=== PATIENT | male | born 1960 | race African-American/Black ===

== ENCOUNTER 2019-03-14 00:57 | Inpatient (IN) | payer OTHER ==
[2019-03-14] MEDS ORDERED: MIDAZOLAM HCL 2 MG/2 ML SINGLE DOSE VIAL IVPUSH ONE (01:15)
--- NOTE | 2019-03-14 01:15 | PDOC ---
History of Present Illness - General Chief Complaint: Seizure Stated Complaint: DIABETIC Time Seen by Provider: 03/14/19 01:14 - History of Present Illness Initial Comments: 03/14/19 01:45 The patient is a 59 year old male with a PMH of NIDDM, HTN, HLD who was BIBEMS for witnessed seizure. Patient's fiance @ bedside provides history as patient has laryngitis following a seizure like episode last Monday. States patient was in bedroom getting ready for bed when she heard a thump on the ground coming from patient's bedroom. Patient's fiance found patient on the bed shaking, with his eyes rolled back in his head. Episode lasted 6-7 minutes. H/ o similar episode last Monday for which patient was evaluated at urgent care. No reported h/o trauma, recent medication changes, illegal drug use, alcohol use /cessation. Patient does not recall either episode. NKDA PMD: Dr. Ambika Daniel M.D. Past History - Past Medical History Allergies/Adverse Reactions: Allergies Allergy/AdvReac Type Severity Reaction Status Date / Time No Known Allergies Allergy Verified 03/14/19 02:02 Home Medications: Ambulatory Orders Amlodipine Besylate [Norvasc -] 5 mg PO DAILY 03/14/19 Aspirin [ASA -] 81 mg PO DAILY 03/14/19 Atorvastatin Ca [Lipitor] 20 mg PO HS 03/14/19 Glipizide 10 mg PO DAILY 03/14/19 Lisinopril 5 mg PO DAILY 03/14/19 Metformin HCl [Glucophage] 1,000 mg PO BID 03/14/19 Diabetes: Yes - Suicide/Smoking/Psychosocial Hx Smoking Status: No Smoking History: Unknown if ever smoked Number of Cigarettes Smoked Daily: 0 Hx Alcohol Use: No Substance Use Type: None Review of Systems - Review of Systems Constitutional: No: Chills, Fever HEENTM: No: Blurred Vision, Recent change in vision Respiratory: No: Shortness of Breath, Wheezing Cardiac (ROS): No: Chest Pain, Lightheadedness, Palpitations, Syncope ABD/GI: No: Constipated, Diarrhea : No: Burning, Dysuria Neurological: Yes: Seizure *Physical Exam - Vital Signs Last Vital Signs Temp Pulse Resp BP Pulse Ox 98.8 F 111 H 18 175/110 H 98 03/14/19 01:09 03/14/19 01:09 03/14/19 01:09 03/14/19 01:09 03/14/19 01:09 - Physical Exam Comments: 03/14/19 04:56 GENERAL: Reduced phonation HEENT: NC/AT, PERRLA, EOMI, MMM NECK: Normal range of motion, supple without lymphadenopathy, JVD, or masses. LUNGS: Breath sounds equal, clear to auscultation bilaterally. No wheezes, and no crackles. No accessory muscle use. HEART: tachycardic no m/r/g ABDOMEN: Soft, nontender, not distended, normoactive bowel sounds, no guarding, no rebound, no masses. No hepatomegaly or splenomegaly. MUSCULOSKELETAL: Normal range of motion at all joints. No bony deformities or tenderness. No CVA tenderness. UPPER EXTREMITIES: 2+ pulses, warm, well-perfused. No cyanosis. No clubbing. No peripheral edema. LOWER EXTREMITIES: 2+ pulses, warm, well-perfused. No calf tenderness. No peripheral edema. NEUROLOGICAL: non-focal PSYCHIATRIC: Cooperative. Good eye contact. Appropriate mood and affect. SKIN: Warm, dry, normal turgor, no rashes or lesions noted, normal capillary refill. Heart Score/ECG Review - ECG Impressions Comment:: 03/14/19 02:09 NSR HR 105, no COSTA/STD/TWI ED Treatment Course - LABORATORY CBC & Chemistry Diagram: 03/14/19 01:33 03/14/19 01:33 Medical Decision Making - Medical Decision Making 03/14/19 01:52 59 year old male with witnessed seizure. Hypertensive (175/110), Tachycardic ( HR 110) @ presentation Seizure while in ED. Will give Ativan and obtain CT head. Likely dispostion is admission for new onset seizure disorder. Labs, UTox, Lactic Acid, Prolactin pending. CXR to r/o aspiration. Also consider, but less likely r/o ACS - Troponin, EKG pending. 03/14/19 02:09 EKG non-ischemic as documented in EKG section of EMR 03/14/19 02:11 Patient reassessed @ bedside, remains mildly tachycardic (HR 104). IV hydration. Labs pending. 03/14/19 02:42 BS 581 Lactic Acid 3.7 2L IV NS and repeat blood sugar then consider insulin Cr 2.1 (previous Cr 1.5 in 2015) Troponin (-) Family @ bedside counseled on plan of care Hospitalist microblogged for admission 03/14/19 03:54 Case d/w Dr. Cardona, patient admitted to OBS Tele; neurology consult in the a.m. Clinical Impression: New onset seizure, KIM 03/14/19 04:45 Call received from Imaging inventory control specialist - L cerebellum, hypodensity, mass effect on 4th ventricle, ? mass, ? edema Will make hospitalist aware, patient likely requires MRI 03/14/19 04:52 Hospitalist microblogged No infiltrate on my read of CXR 03/14/19 04:54 Case d/w Dr. Cardona (in ED) and Dr. Johnson (phone) 03/14/19 04:58 Repeat BS 267 *DC/Admit/Observation/Transfer Diagnosis at time of Disposition: New onset seizure - Discharge Dispostion Condition at time of disposition: Fair Decision to Admit order: Yes - Referrals - Patient Instructions - Post Discharge Activity
--- NOTE | 2019-03-14 01:35 | PDOC ---
Attending Attestation - Resident Resident Name: Lora Santos - ED Attending Attestation I have performed the following: I have examined & evaluated the patient, The case was reviewed & discussed with the resident, I agree w/resident's findings & plan - HPI HPI: 03/14/19 01:33 59-year-old male with witnessed seizure activity 2, most recently in the emergency department. According to his significant other who is at the bedside the first episode was on Monday which involves generalized shaking and "convulsions", patient's significant other also states that he did have some vomiting associated with this episode and since has had some sore throat and hoarse voice. Patient denies complaints at this time and does not recall the episodes when they happen. He denies recent change in medications, he has no history of benzodiazepine or alcohol use. - Physicial Exam PE: 03/14/19 01:34 Agree with resident's exam - Medical Decision Making 03/14/19 01:34 59-year-old male with witnessed seizure activity Due to multiple seizures and risk of aspiration patient will be admitted to medical service for further workup CT scan and labs pending Ativan 1 mg IV given
[2019-03-14] MEDS ORDERED: LORazepam 2 MG/ML SDV VIAL ONE (01:41)
[2019-03-14 01:52] LABS: BASO % 0.6 % (0-2.0); EOS % 2.5 % (0-4.5); HEMATOCRIT 40.8 % (35.4-49); HEMOGLOBIN 13.7 GM/dL (11.7-16.9); LYMPH % 31.4 % (8-40); MCHC 33.5 g/dl (32.0-35.9); MEAN CELL VOLUME 95.7 fl (80-96); MEAN PLT VOLUME 11.1 fl (7.5-11.1); MONO % 8.2 % (3.8-10.2); NEUT % 57.3 % (42.8-82.8); PLATELET COUNT 176 K/MM3 (134-434); RBC 4.27 M/mm3 (4.00-5.60); RDW 13.1 % (11.9-15.9)
[2019-03-14 02:21] LABS: ALBUMIN 3.4 g/dl (3.4-5.0); ALK PHOS 140 U/L (45-117); ANION GAP 8 MMOL/L (8-16); BILIRUBIN,TOTAL 0.2 mg/dL (0.2-1); BLOOD UREA NITROGEN 23 mg/dL (7-18); CALCIUM 8.3 mg/dL (8.5-10.1); CHLORIDE 100 mmol/L (98-107); CO2 26 mmol/L (21-32); CREATININE 2.1 mg/dL (0.55-1.3); POTASSIUM 4.8 mmol/L (3.5-5.1); SGOT/AST 19 U/L (15-37); SGPT/ALT 29 U/L (13-61); SODIUM 134 mmol/L (136-145); TOT PROT 7.3 g/dl (6.4-8.2)
[2019-03-14 02:23] LABS: GLUCOSE,RANDOM 581 mg/dL (74-106)
[2019-03-14] MEDS ORDERED: SODIUM CHLORIDE 0.9% 500 ML INFUS.BAG IV ONE (02:39)
--- NOTE | 2019-03-14 03:03 | PN ---
Teaching Attending Note Name of Resident: Mike Johnson ATTENDING PHYSICIAN STATEMENT I saw and evaluated the patient. I reviewed the resident's note and discussed the case with the resident. I agree with the resident's findings and plan as documented. SUBJECTIVE: Seen and examined; please refer to resident note for further historical information. Briefly, he presents with a witnessed sz @ home just after midnight; it lasted 7 minutes. He did vomit and did bite his tongue. Patient is somnolent; he doesn't remember all details and was somewhat post ictal and did recieve ativan when he got to the ER as he was noted to seize again when he arrived; this did abort his sx. On monday night he had a similar episode when sleeping; he was sweating/shaking and appeared post ictal when he woke up. Went to an urgent care at that time and was diagnosed with laryngitis (due to several days of vocal changes with 'strange' feeling in throat). Some dizziness with movement for the past few weeks without stereotyped vertigo sx; R -hand parasthesias near fingers. No speech changes, no prior trauma. No history of seizures or neuro issues, doesn't follow with neurology. 10 sys ROS done and negative aside from HPI PMH (DM with neuropathy, HTN, HLD), PSH, FH, SH reviewed Home Medications Medication Instructions Recorded Glipizide 5 mg PO DAILY #30 tablet 12/22/14 Metformin HCl [Glucophage] 500 mg PO BID #30 tablet 12/22/14 *Updating; he is on metformin, glipizide, atorva 20, lisinopril 5, norvasc 5 OBJECTIVE: VS, labs, imaging reviewed NAD, AAO, resting comfortably in bed. Somewhat sleepy but will respond when aroused. NC AT EOMI PERRLA tachycardia to RRR s1/2 no mgr Lungs CTAB, w/ sym exp NT ND +BS Horse voice; otherwise moves all 4 ext with 5/5 strength and no distortions in sensorium with normal cranial nerve examination. ASSESSMENT AND PLAN: Patient presents for new-onset seizures and is found to have severe hyperglycemia 1) New-onset Seizures -3 total seizures; no prior history, doesn't follow with neuro. Denies current trauma. History is suggestive of seizures. Denies EtOH abuse. -Ideally would like contrast-enhanced MRI but renal function noted; will followup BMP and discuss with radiology in the AM prior to study if we could contrast should his renal function improve. -Consult neuro to see him in AM; continue neuro checks and seizure precautions. -Loaded with Keppra; continue on 500 BID after load. Defer EEG testing to neurology. Check RPR, followup prolactin from ER -Followup prelim CT report; addendum pending. Consider the underlying etiology of seizures; consider things like lesions, cva, etc. 2) Uncontrolled DM with Hyperglycemia -ER events noted; giving IV insulin and rechecking. Hold PO medications when in house and check A1c. May need group home insulin. Hyperglycemia could be reactive to the seizure, as well. 3) KIM on CKD vs. Worsening CKD -Prior CKD noted; empiric hydration given in ER and will continue maintenance fluids. Followup renal US. Consider renal referral. 4) Elevated Lactate -Likely 2/2 seizure; check repeat after hydration. He is afebrile and doesn't appear to have any active infection 5) Mild Hyponatremia -Likely pseudohyponatremia 2/2 hyperglycemia; control glucose and repeat BMP 6) HLD -Continue home atorva once verified 7) Obesity -Auto Body Painter prior to discharge Full Code
[2019-03-14] MEDS ORDERED: levETIRAcetam 500 MG/5 ML INJECTION VIAL IVPB ONE ×2 (03:07→03:22)
--- NOTE | 2019-03-14 03:54 | HP ---
CHIEF COMPLAINT: seizures PCP: Ambika Daniel HISTORY OF PRESENT ILLNESS: Patient is a 59 y/o M w/ PMHx NIDDM, HTN, HLD, BIBEMS for witnessed seizure. Pt states he felt shaking in his RLE around midnight which then generalized throughout his body as tonic-clonic activity. Fiance at bedside who provides significant Hx states she found him shaking on the bed with his eyes rolling in his head for 6-7 minutes, states patient had urinary incontinence, tongue- biting resulting in bleeding, NBNB emesis, and ~30 post-ictal period. There was a similar episode previously on Monday, for which Pt was seen but not treated at urgent care. Concomitantly developed "laryngitis" at that time, also untreated. Has never had prior seizures. No other complaints. Brought to ED, afebrile, HR 111, BP 175/110. Had further seizure in ED broken with ativan and versed, also received 2L saline bolus. Pt states seizure in ED also began with RLE shaking prior to generalization. HCT negative. EKG unremarkable. Labs significant for Cr 2.1 (last known prior 1.5 in 2014), lactate of 3.7, glucose 581. Recent Travel: PAST MEDICAL HISTORY: As per HPI PAST SURGICAL HISTORY: No Social History: Smoking: Alcohol: Drugs: Family History: Allergies No Known Allergies Allergy (Verified 03/14/19 02:02) HOME MEDICATIONS: Home Medications Medication Instructions Recorded Amlodipine Besylate [Norvasc -] 5 mg PO DAILY 03/14/19 Aspirin [ASA -] 81 mg PO DAILY 03/14/19 Atorvastatin Ca [Lipitor] 20 mg PO HS 03/14/19 Glipizide 10 mg PO DAILY 03/14/19 Lisinopril 5 mg PO DAILY 03/14/19 Metformin HCl [Glucophage] 1,000 mg PO BID 03/14/19 REVIEW OF SYSTEMS As per HPI PHYSICAL EXAMINATION Vital Signs - 24 hr 03/14/19 01:09 Temperature 98.8 F Pulse Rate 111 H Respiratory 18 Rate Blood Pressure 175/110 H O2 Sat by Pulse 98 Oximetry (%) GENERAL: Lethargic (s/p benzos) but arousable and fully oriented, reduced phonation HEENT: NC/AT, PERRLA, EOMI, MMM NECK: Normal range of motion, supple without lymphadenopathy, JVD, or masses. LUNGS: Breath sounds equal, clear to auscultation bilaterally. No wheezes, and no crackles. No accessory muscle use. HEART: tachycardic no m/r/g ABDOMEN: Soft, nontender, not distended, normoactive bowel sounds, no guarding, no rebound, no masses. No hepatomegaly or splenomegaly. MUSCULOSKELETAL: Normal range of motion at all joints. No bony deformities or tenderness. No CVA tenderness. UPPER EXTREMITIES: 2+ pulses, warm, well-perfused. No cyanosis. No clubbing. No peripheral edema. LOWER EXTREMITIES: 2+ pulses, warm, well-perfused. No calf tenderness. No peripheral edema. NEUROLOGICAL: non-focal PSYCHIATRIC: Cooperative. Good eye contact. Appropriate mood and affect. SKIN: Warm, dry, normal turgor, no rashes or lesions noted, normal capillary refill. Laboratory Results - last 24 hr 03/14/19 03/14/19 03/14/19 01:33 01:33 01:33 WBC 8.0 RBC 4.27 Hgb 13.7 Hct 40.8 MCV 95.7 MCH 32.0 MCHC 33.5 RDW 13.1 Plt Count 176 MPV 11.1 Absolute Neuts (auto) 4.6 Neutrophils % 57.3 Lymphocytes % 31.4 D Monocytes % 8.2 Eosinophils % 2.5 D Basophils % 0.6 Nucleated RBC % 0 Sodium 134 L Potassium 4.8 Chloride 100 Carbon Dioxide 26 Anion Gap 8 BUN 23 H Creatinine 2.1 H Creat Clearance w eGFR 32.49 Random Glucose 581 H* Lactic Acid Calcium 8.3 L Total Bilirubin 0.2 AST 19 ALT 29 Alkaline Phosphatase 140 H Creatine Kinase 168 Creatine Kinase Index 1.2 CK-MB (CK-2) 2.1 Troponin I < 0.02 Total Protein 7.3 Albumin 3.4 03/14/19 01:33 WBC RBC Hgb Hct MCV MCH MCHC RDW Plt Count MPV Absolute Neuts (auto) Neutrophils % Lymphocytes % Monocytes % Eosinophils % Basophils % Nucleated RBC % Sodium Potassium Chloride Carbon Dioxide Anion Gap BUN Creatinine Creat Clearance w eGFR Random Glucose Lactic Acid 3.7 H* Calcium Total Bilirubin AST ALT Alkaline Phosphatase Creatine Kinase Creatine Kinase Index CK-MB (CK-2) Troponin I Total Protein Albumin ASSESSMENT/PLAN: 59 y/o M w/ PMHx NIDDM, HTN, HLD, p/w new onset seizure disorder #A -new onset CPS w/ generalization at age 59 concerning for mass lesion -glucose uncontrolled -lactate likely 2/2 seizure -KIM vs. CKD -HTN insufficiently controlled #P -consider neurology consult -loading dose Keppra given -brain MRI w/o contrast given Cr 2.1 -f/u prolactin -trend lactate -BGM, SSI -hold home lisinopril given Cr, increase home Norvasc to 10 -consider hydralazine -renal US -no IVF -f/u BMP, Mg, Phos -diabetic diet -heparin subq for DVT PPx -full code -admit to telemetry Visit type - Emergency Visit Emergency Visit: Yes Care time: The patient presented to the Emergency Department on the above date and was hospitalized for further evaluation of their emergent condition. - New Patient This patient is new to me today: Yes Date on this admission: 03/14/19 - Critical Care Critical Care patient: No
[2019-03-14] MEDS ORDERED: INSULIN REGULAR HUMAN 100 UNITS/ML *VIAL IVPUSH ONE (03:55)
[2019-03-14] MEDS ORDERED: amLODIPine BESYLATE 5 MG TABLET (FP) PO ONE (03:55)
[2019-03-14] MEDS ORDERED: amLODIPine BESYLATE 5 MG TABLET (FP) ONE (04:14)
[2019-03-14] MEDS ORDERED: INSULIN REGULAR HUMAN 100 UNITS/ML *VIAL ONE (04:15)
[2019-03-14 05:26] LABS: HEMATOCRIT 38.1 % (35.4-49); HEMOGLOBIN 13.2 GM/dL (11.7-16.9); MCH 31.7 pg (25.7-33.7); MCHC 34.5 g/dl (32.0-35.9); MEAN CELL VOLUME 91.9 fl (80-96); RBC 4.15 M/mm3 (4.00-5.60); WHITE BLOOD COUNT 8.7 K/mm3 (4.0-10.0)
[2019-03-14 05:27] LABS: BASO % 1.2 % (0-2.0); EOS % 0.9 % (0-4.5); LYMPH % 23.5 % (8-40); MEAN PLT VOLUME 10.4 fl (7.5-11.1); MONO % 6.7 % (3.8-10.2); NEUT % 67.7 % (42.8-82.8); PLATELET COUNT 186 K/MM3 (134-434); RDW 12.5 % (11.9-15.9)
[2019-03-14 05:52] LABS: ANION GAP 5 MMOL/L (8-16); BLOOD UREA NITROGEN 25 mg/dL (7-18); CALCIUM 8.3 mg/dL (8.5-10.1); CHLORIDE 111 mmol/L (98-107); CO2 25 mmol/L (21-32); CREATININE 1.8 mg/dL (0.55-1.3); GLUCOSE,RANDOM 257 mg/dL (74-106); MAGNESIUM 2.3 mg/dL (1.8-2.4); PHOSPHOROUS 3.3 mg/dL (2.5-4.9); POTASSIUM 4.5 mmol/L (3.5-5.1); SODIUM 141 mmol/L (136-145)
[2019-03-14] MEDS ORDERED: ASPIRIN 81 MG CHEWABLE TABLETS PO SCH (06:05)
[2019-03-14] MEDS ORDERED: HEPARIN NA (PORCINE) 5,000 UNITS/ML 1ML VIAL ONE (06:23)
[2019-03-14] MEDS: HEPARIN NA (PORCINE) 5,000 UNITS/ML 1ML VIAL SQ SCH ×3 (06:29→22:15)
[2019-03-14] MEDS ORDERED: INSULIN (NOVOLOG) ASPART 100 UNITS/ML 10ML VIAL ONE ×3 (06:53→20:24)
[2019-03-14] MEDS: INSULIN SLIDING SCALE (NOVOLOG) 1 VIAL SQ SCH ×4 (06:56→22:15)
[2019-03-14] MEDS: ASPIRIN 81 MG CHEWABLE TABLETS PO SCH (10:03)
--- NOTE | 2019-03-14 10:42 | PN ---
Physical Exam: SUBJECTIVE: Patient seen and examined. Pt. states that he slept through the night, denies any previous occurrence of seizures. Pt. states that he checks his sugars intermittently at home in 300s. OBJECTIVE: Vital Signs Period Temp Pulse Resp BP Sys/Vargas Pulse Ox Last 24 Hr 97.5 F-98.8 F 90-111 18-20 145-175/94-110 96-100 GENERAL: The patient is awake, alert, and fully oriented, in no acute distress. HEAD: Normal with no signs of trauma. EYES: Pupil, extraocular movements intact, sclera anicteric, conjunctiva clear. No ptosis. ENT: Ears normal, nares patent, oropharynx clear without exudates, moist mucous membranes. NECK: Trachea midline, full range of motion, supple. LUNGS: Breath sounds equal, clear to auscultation bilaterally, no wheezes, no crackles, no accessory muscle use. HEART: Regular rate and rhythm, S1, S2 without murmur ABDOMEN: Soft, nontender, nondistended, normoactive bowel sounds, no guarding, no rebound EXTREMITIES: 2+ radial pulses, warm, no calf tenderness, well-perfused, no edema. NEUROLOGICAL: Cranial nerves II through XII grossly intact. Normal speech, gait not observed. PSYCH: Normal mood, normal affect. SKIN: Warm, dry, normal turgor, no rashes or lesions noted Laboratory Results - last 24 hr 03/14/19 03/14/19 03/14/19 01:33 01:33 01:33 WBC 8.0 RBC 4.27 Hgb 13.7 Hct 40.8 MCV 95.7 MCH 32.0 MCHC 33.5 RDW 13.1 Plt Count 176 MPV 11.1 Absolute Neuts (auto) 4.6 Neutrophils % 57.3 Lymphocytes % 31.4 D Monocytes % 8.2 Eosinophils % 2.5 D Basophils % 0.6 Nucleated RBC % 0 Sodium 134 L Potassium 4.8 Chloride 100 Carbon Dioxide 26 Anion Gap 8 BUN 23 H Creatinine 2.1 H Creat Clearance w eGFR 32.49 POC Glucometer Random Glucose 581 H* Hemoglobin A1c % Lactic Acid Calcium 8.3 L Phosphorus Magnesium Total Bilirubin 0.2 AST 19 ALT 29 Alkaline Phosphatase 140 H Creatine Kinase 168 Creatine Kinase Index 1.2 CK-MB (CK-2) 2.1 Troponin I < 0.02 C-Reactive Protein Total Protein 7.3 Albumin 3.4 RPR Titer 03/14/19 03/14/19 03/14/19 01:33 03:26 03:26 WBC RBC Hgb Hct MCV MCH MCHC RDW Plt Count MPV Absolute Neuts (auto) Neutrophils % Lymphocytes % Monocytes % Eosinophils % Basophils % Nucleated RBC % Sodium Potassium Chloride Carbon Dioxide Anion Gap BUN Creatinine Creat Clearance w eGFR POC Glucometer Random Glucose Hemoglobin A1c % 10.6 H Lactic Acid 3.7 H* Calcium Phosphorus Magnesium Total Bilirubin AST ALT Alkaline Phosphatase Creatine Kinase Creatine Kinase Index CK-MB (CK-2) Troponin I C-Reactive Protein 1.0 H Total Protein Albumin RPR Titer 03/14/19 03/14/19 03/14/19 03:26 03:26 03:51 WBC RBC Hgb Hct MCV MCH MCHC RDW Plt Count MPV Absolute Neuts (auto) Neutrophils % Lymphocytes % Monocytes % Eosinophils % Basophils % Nucleated RBC % Sodium Potassium Chloride Carbon Dioxide Anion Gap BUN Creatinine Creat Clearance w eGFR POC Glucometer 470 Random Glucose Hemoglobin A1c % Lactic Acid Calcium Phosphorus Magnesium Total Bilirubin AST ALT Alkaline Phosphatase Creatine Kinase 196 Creatine Kinase Index 1.0 CK-MB (CK-2) 2.0 Troponin I C-Reactive Protein Total Protein Albumin RPR Titer Nonreactive 03/14/19 03/14/19 03/14/19 04:55 05:10 05:10 WBC 8.7 RBC 4.15 Hgb 13.2 Hct 38.1 MCV 91.9 MCH 31.7 MCHC 34.5 RDW 12.5 Plt Count 186 MPV 10.4 Absolute Neuts (auto) 5.9 Neutrophils % 67.7 Lymphocytes % 23.5 D Monocytes % 6.7 Eosinophils % 0.9 Basophils % 1.2 Nucleated RBC % 0 Sodium Potassium Chloride Carbon Dioxide Anion Gap BUN Creatinine Creat Clearance w eGFR POC Glucometer 267 Random Glucose Hemoglobin A1c % Lactic Acid 2.3 H* Calcium Phosphorus Magnesium Total Bilirubin AST ALT Alkaline Phosphatase Creatine Kinase Creatine Kinase Index CK-MB (CK-2) Troponin I C-Reactive Protein Total Protein Albumin RPR Titer 03/14/19 03/14/19 05:10 06:50 WBC RBC Hgb Hct MCV MCH MCHC RDW Plt Count MPV Absolute Neuts (auto) Neutrophils % Lymphocytes % Monocytes % Eosinophils % Basophils % Nucleated RBC % Sodium 141 Potassium 4.5 Chloride 111 H Carbon Dioxide 25 Anion Gap 5 L BUN 25 H Creatinine 1.8 H Creat Clearance w eGFR 38.81 POC Glucometer 248 Random Glucose 257 H Hemoglobin A1c % Lactic Acid Calcium 8.3 L Phosphorus 3.3 Magnesium 2.3 Total Bilirubin AST ALT Alkaline Phosphatase Creatine Kinase Creatine Kinase Index CK-MB (CK-2) Troponin I C-Reactive Protein Total Protein Albumin RPR Titer Active Medications Home Medications Medication Instructions Recorded Amlodipine Besylate [Norvasc -] 5 mg PO DAILY 03/14/19 Aspirin [ASA -] 81 mg PO DAILY 03/14/19 Atorvastatin Ca [Lipitor] 20 mg PO HS 03/14/19 Glipizide 10 mg PO DAILY 03/14/19 Lisinopril 5 mg PO DAILY 03/14/19 Metformin HCl [Glucophage] 1,000 mg PO BID 03/14/19 Current Medications Aspirin (Asa -) 81 mg PO DAILY [facility] Last Admin: 03/14/19 10:03 Dose: 81 mg Atorvastatin Calcium (Lipitor -) 40 mg PO [facility] Heparin Sodium (Porcine) (Heparin -) 5,000 unit SQ TID [facility] Last Admin: 03/14/19 06:29 Dose: 5,000 unit Insulin Aspart (Novolog Vial Sliding Scale -) 1 vial SQ ACHS [facility]; Protocol Last Admin: 03/14/19 11:31 Dose: 4 units ASSESSMENT/PLAN: Pt. is a 59 y.o. M w/ PMHx NIDDM, HTN, HLD presents with new onset seizure disorder. #New onset Complex Partial Seizure likely 2/2 TIA 2/2 uncontrolled Diabetes and uncontrolled Hypertension Head CT Negative for acute pathology EKG unremarkable, no ST-T segment changes, no TWI Non-compliant with medications LA: 3.7-->2.3 f/u MRI w/o contrast Carotid Duplex shows decrease in flow velocity from 80cm/s to 40cm/s suggestive of hemodynamic significant stenosis, f/u CTA once Cr. improves Echo(03/14/19): Trace TR, EF: 60-65% Increased Lipitor to 40mg Daily for HLD and intensification of statin post suspected CVA. Start ASA 81mg Given 1gm Keppra, c/w 500mg BID Neurology (Dr. Urias) and Neurosurgery(Dr. Soria) consults appreciated Speech and Swallow Consult appreciated: MBS if fever, cough and chills. ENT as outpatient for hoarseness of voice. #KIM 2/2 uncontrolled DM and HTN Likely has a baseline CKD given PMHx. and non-compliance Cr elevated to 2.1 now decreased to 1.8 (last known was 1.5 in 2014) Renal US negative for acute pathology c/w IVF Hold Lisinopril until Cr. improves. #IDDM Pt. presented with hx. of NIDDM and Glucose 500s w/o AG A1c is 10.6 now confirmed IDDM. Non-compliant with medications at home, will c/w daily counseling to adhere Start Levemir 10 units HS ISS ACHS BGM ACHS Dietary consult appreciated #HTN Increased Norvasc to 10mg Hold Lisinopril Avoid nephrotoxic agents at this time #FEN no IVF monitor electrolytes and replete as needed NPO #DVT Ppx. Heparin SQTID Visit type - Emergency Visit Emergency Visit: Yes ED Registration Date: 03/14/19 Care time: The patient presented to the Emergency Department on the above date and was hospitalized for further evaluation of their emergent condition. - New Patient This patient is new to me today: Yes Date on this admission: 03/14/19 - Critical Care Critical Care patient: No - Discharge Referral Referred to [facility] Med P.C.: No
[2019-03-14 11:42] LABS: COCAINE, UR NEGATIVE ng/ml (CUTOFF=300); METHADONE, UR NEGATIVE ng/ml (CUTOFF=300); OPIATES, URI NEGATIVE ng/ml (CUTOFF=300); PHENCYCLIDINE,URINE NEGATIVE ng/ml (CUTOFF=25); URINE AMPHETAMINES NEGATIVE ng/ml (CUTOFF=500); URINE BARBITURATES NEGATIVE ng/ml (CUTOFF=200); URINE BENZODIAZEPINES NEGATIVE ng/ml (CUTOFF=200)
--- NOTE | 2019-03-14 11:56 | CONSULT ---
Admitting History and Physical - Primary Care Physician PCP: Camila Christy - Admission History of Present Illness: Per EMR note- HISTORY OF PRESENT ILLNESS: Patient is a 59 y/o M w/ PMHx NIDDM, HTN, HLD, BIBEMS for witnessed seizure. Pt states he felt shaking in his RLE around midnight which then generalized throughout his body as tonic-clonic activity. Fiance at bedside who provides significant Hx states she found him shaking on the bed with his eyes rolling in his head for 6-7 minutes, states patient had urinary incontinence, tongue- biting resulting in bleeding, NBNB emesis, and ~30 post-ictal period. There was a similar episode previously on Monday, for which Pt was seen but not treated at urgent care. Concomitantly developed "laryngitis" at that time, also untreated. Has never had prior seizures. No other complaints. Brought to ED, afebrile, HR 111, BP 175/110. Had further seizure in ED broken with ativan and versed, also received 2L saline bolus. Pt states seizure in ED also began with RLE shaking prior to generalization. HCT negative. EKG unremarkable. Labs significant for Cr 2.1 (last known prior 1.5 in 2014), lactate of 3.7, glucose 581. History Source: Patient, Family Member Limitations to Obtaining History: Clinical Condition (aphonia) - Smoking History Smoking history: Unknown if ever smoked Aproximately how many cigarettes per day: 0 - Alcohol/Substance Use Hx Alcohol Use: No History - Admission Reason For Visit: NEW ONSET SEIZURE - Diagnostics X-ray: Report Reviewed CT Scan: Report Reviewed (Prelim report shows hyposendity of the L-cerebellum with partial effacement of the forth ventricle. Findings felt to be 2/2 acute/ subacute ischemic infarct vs. occult mass. Advised further eval with contrast- enhanced MRI.) - General Mental Status: Alert and Oriented, Awake and Alert, Able to Follow Commands Attention: Intact Ability to Follow Directions: Excellent Head/Neck Control: WFL - Hearing Hearing: Normal Speech Evaluation - Communication Primary Language: BHUTANESE - Speech Production Able to Make Needs Known: Yes: Moderately Impaired Intelligibility: Yes: Moderately Impaired, Severely Impaired - Speech Characteristics Voice Loudness: Severely Soft/Quiet Voice Phonatory-based Quality: Yes: Loss of Voice, Dysphonia (APHONIA-no audible phonation.) Speech Pattern: Impaired Speech Clarity: < 50% Articulation: Yes: Precise Rate of Speech: Intact - Language/Auditory Comprehension Follows: Yes: 2 Stage Simple Commands - Language/Verbal Expression Able to Respond to Simple Queries: Yes: WNL Able to Communicate Wants and Needs: Yes: WNL Functional Communication Status: Yes: WNL - Memory/Perception long-term Memory: Yes: WNL Short Term Memory: Yes: WNL - Swallow Evaluation/Bedside Assessment Current Nutritional Intake: Regular, Thin Liquids Oral Secretions: Yes: WFL Dentition: Yes: Adequate Facial Symmetry at Rest: Symmetrical Facial Symmetry on Retraction: Symmetrical Facial Movement: Controlled Sensation: Normal Against Resistance Opening: Normal Against Resistance Closing: Normal Pucker Lips: Normal Smile: Normal Lingual Movement: Normal, Symmetric Lingual Speed of Movement: Normal Lingual Movement Strgth Against Opposition: Normal Lingual Movement Characteristics: Normal Velopharyngeal Movement: Normal Laryngeal Elevation: WFL Laryngeal Movement: Able to Palpate Rate of Intake: WFL Bolus Size: WFL Labial Seal: WFL Chewing: WFL Oral Prep Time: WFL A-P Transit: WFL Pocketing: None Timing of Swallow: WFL Coughing/Throat Clear: No Change in Voice: No Recommendations - Speech Evaluation, Impression/Plan Impression: Aphonia, r/o vocal cord paralysis. Swallowing overtly intact. Completed reg diet/thin liquids in ER without overt difficulty, reported or observed. no Dysarthia. No drooling. XCognitively intact. - Dysphagia Impressions/Plan Dysphagia Impressions: Minimal Impairment, Risk of Aspiration *Silent aspiration: cannot be R/O at bedside Recommendations: ENT Consult (visualize vocal cords, r/o vocal cord dysfunction) , Modified Barium Swallow (if cough,congestion, fever) - Recommendations Diet Consistency: Regular Medication Administration: Whole with water Liquids: Thin Liquids
--- NOTE | 2019-03-14 13:14 | CONSULT ---
Consult - text type - Consultation Consultation Note: NEUROSURGERY CONSULTATION Eyal Mcrae is a 59 year old male with a history of NIDDM and HTN who had a witnessed, GTC seizure last night. He reports a similar, yet milder, episode last Monday, but otherwise has no history of epilepsy or prior seizures. Patient bit his tongue, lost consciousness and was convulsing for 6-7 minutes. He suffered urinary incontinence during his recent ictus. Patient presented to the [facility] ER where he had another seizure which was treated with Ativan and Versed. Head CT demonstrates some low density tissue in the Left Cerebellar hemisphere with extension to the Left middle Cerebellar peduncle. The differential diagnosis includes: tumor, infection/cerebritis, infarction and less likely, acute demyelination. MRI is planned to characterize further. At this point, the patient is wide awake and there is no significant mass effect on the fourth ventricle or at the foramen magnum. Patient cannot have contrast due to elevated Creatinine. Will review MRI and coordinate plan of care with the rest of the team.
--- NOTE | 2019-03-14 13:40 | EKG ---
Test Reason : Blood Pressure : / mmHG Vent. Rate : 105 BPM Atrial Rate : 105 BPM P-R Int : 146 ms QRS Dur : 084 ms QT Int : 350 ms P-R-T Axes : 054 035 071 degrees QTc Int : 462 ms SINUS TACHYCARDIA OTHERWISE NORMAL ECG NO PREVIOUS ECGS AVAILABLE Confirmed by EBONY RIVERA MD ([id number]) on 03/14/2019 1:40:30 PM Referred By: Confirmed By:EBONY RIVERA MD
--- NOTE | 2019-03-14 13:49 | ECHO ---
Name: LEONARDO VICENTE Exam:Adult Echocardiogram Study Date: 03/14/2019 07:43 AM Age: 59 yrs Reason For Study: ef Height: 72 in Weight: 225 lb BSA: 2.2 m2 MMode/2D Measurements & Calculations IVSd: 1.2 cm Ao root diam: 2.9 cm LVIDd: 4.6 cm LA dimension: 3.2 cm LVIDs: 2.7 cm LVPWd: 0.96 cm EDV(Teich): 96.0 ml LVOT diam: 2.0 cm ESV(Teich): 26.3 ml LAV (MOD-bp): 56.7 ml Doppler Measurements & Calculations MV E max felipe: 58.7 cm/sec Ao V2 max: 145.2 cm/sec MV A max felipe: 87.3 cm/sec Ao max P.4 mmHg MV E/A: 0.67 MV dec time: 0.07 sec MOY(V,D): 2.0 cm2 LV V1 max P.3 mmHg TR max felipe: 246.6 cm/sec LV V1 max: 90.7 cm/sec TR max P.4 mmHg PA V2 max: 142.5 cm/sec Med Peak E' Felipe: 4.0 cm/sec PA max P.1 mmHg Med E/e': 14.6 Lat Peak E' Felipe: 6.6 cm/sec Lat E/e': 8.8 PI Vmax: 135.7 cm/sec Procedure A complete two-dimensional transthoracic echocardiogram was performed (2D, M-mode, Doppler and color flow Doppler). Left Ventricle The left ventricular size, thickness and function are normal. The left ventricular ejection fraction is normal. Ejection Fraction = 60-65%. The left ventricular wall motion is normal. Right Ventricle The right ventricle is normal in size and function. Atria Normal left and right atrial size and function. Mitral Valve There is no mitral regurgitation noted. Tricuspid Valve There is trace tricuspid regurgitation. Right ventricular systolic pressure is normal. Aortic Valve No hemodynamically significant valvular aortic stenosis. No aortic regurgitation is present. Pulmonic Valve There is no pulmonic valvular regurgitation. Great Vessels The aortic root is normal size. Pericardium/Pleura There is no pericardial effusion. Interpretation Summary The left ventricular size, thickness and function are normal The right ventricle is normal in size and function. There is trace tricuspid regurgitation. MD Donald Baxter 03/14/2019 01:49 PM
--- NOTE | 2019-03-14 17:10 | PN ---
Teaching Attending Note Name of Resident: Jesus Shaw ATTENDING PHYSICIAN STATEMENT I saw and evaluated the patient. I reviewed the resident's note and discussed the case with the resident. I agree with the resident's findings and plan as documented. SUBJECTIVE:currently asymptomatic. similar episode noted in the ER last night but did not progress. had similiar episode a week ago but was not evaluated. was recently started on antihypertensives which he reports he takes intermittently, claims compliance with diabetic medications. denies CP, SOB, fever, chills, N/V/C/D OBJECTIVE: Last Vital Signs Temp Pulse Resp BP Pulse Ox 97.5 F L 95 H 18 160/100 96 03/14/19 06:27 03/14/19 06:36 03/14/19 06:36 03/14/19 06:36 03/14/19 06:36 General NAD CV S1 S2 RRR no murmur/rub/gallop Lungs CTA B/L no wheezing/rales/rhonchi Abdomen soft NT/ND Neuro raspy voice, CN II-XII grossly intact. negative pronator drift, neg heel to conte. strength and sensation equal in all 4 extremiteis neg dysmetria ASSESSMENT AND PLAN: 59yo M with PMH DM, CKD, dyslipidemia, and newly diagnosed HTN with poor compliance presenting after witnessed seizure with noted tongue biting 1. Seizure- possible due electrolyte disturbances vs questionable mass. initial CT head reporting mass seen but now not visualized. will obtain MRI to evaluate. will be unable to do with contrast given kidney function. neurosurg on baord 2. CVA- CT showing acute/subacute L cerebellar infarct. no residual deficits. will start plavix. cont asa. increase statin to high intensity. neuro, speech and PT evals. cardiac monitoring. f/u carotid doppler and echo 3. acute on CKD- possible due to HTN episode. trending down. f/u renal u/s. avoid nephrotoxic agents 4. lactic acidosis- due to seizure. trending down 5. Hyperglycemia- A1c 10.6. uncontrolled. claims complaince. will need insulin. start levemir 10 units tonight. RN teaching how to administer insulin. dietary consult. counselled on halfway consequences of uncontrolled sugars 6. Hoarseness- throat swab 7. HTN- above goal. permissive HTN for now. will need tight control on discharge 8. DVT ppx- hep sq 9. spoke with fiance present at bedside. all questions answered. verbalized understanding and agreement with plan
--- NOTE | 2019-03-14 17:21 | CON.NEURO ---
Consult Consult Specialty:: Bridgett Referred by:: ER - History of Present Illness History of Present Illness: 59-year-old right-handed man New onset seizure witnessed at night by the Came into the emergency room at [facility] Questionable intra-axial lesion Patient had another episode of rocking No family hx of sz Works in construction - History Source History Provided By: Patient Limitations to Obtaining History: No Limitations - Alcohol/Substance Use Hx Alcohol Use: No - Smoking History Smoking history: Unknown if ever smoked Aproximately how many cigarettes per day: 0 Home Medications - Allergies Allergies/Adverse Reactions: Allergies Allergy/AdvReac Type Severity Reaction Status Date / Time No Known Allergies Allergy Verified 03/14/19 02:02 - Home Medications Home Medications: Ambulatory Orders Amlodipine Besylate [Norvasc -] 5 mg PO DAILY 03/14/19 Aspirin [ASA -] 81 mg PO DAILY 03/14/19 Atorvastatin Ca [Lipitor] 20 mg PO HS 03/14/19 Glipizide 10 mg PO DAILY 03/14/19 Lisinopril 5 mg PO DAILY 03/14/19 Metformin HCl [Glucophage] 1,000 mg PO BID 03/14/19 Family Disease History - Family Disease History Family History: Denies (cva) Review of Systems - Review of Systems Constitutional: reports: No Symptoms Eyes: reports: No Symptoms HENT: reports: No Symptoms Neurological: reports: Headache, Incoordination, Numbness, Parasthesia, Unsteady Gait Physical Exam-Neuro Vital Signs: Vital Signs Temperature 97.9 F 03/14/19 17:07 Pulse Rate 99 H 03/14/19 17:07 Respiratory Rate 18 03/14/19 06:36 Blood Pressure 122/89 03/14/19 17:07 O2 Sat by Pulse Oximetry (%) 95 03/14/19 17:07 Constitutional: Yes: Well Nourished Neck: Yes: WNL Cardiovascular: Yes: WNL Labs: CBC, BMP 03/14/19 05:10 03/14/19 05:10 - Neuro Exam Level Of Consciousness: Yes: Oriented to Person, Oriented to Place, Oriented to Time Eyes: Yes: PERRLA Speech: WNL Dominant Hand: Right Cranial Nerves II-XII Intact: Yes Gag: Present DTR's: 1+ Left Bicep, 1+ Right Bicep, 1+ Left Brachioradialis, 1+ Right Brachioradialis Response to light touch: Normal Response to pain prick: Normal Response to temperature: Normal Response to vibration: Normal Motor Strength: 3/5: Left Arm, Right Arm, Left Leg, Right Leg Gait: Deferred Imaging - Results Cat Scan: Image Reviewed MRI: Image Reviewed Problem List - Problems (1) New onset seizure Assessment/Plan: Intraxial lesion New onset seziue 1. Neuro q1 2. Repeat MRI with Hermilo with low dosage 3. EEG 4. Keppra 5. Suggest metatstic work up Code(s): R56.9 - UNSPECIFIED CONVULSIONS
[2019-03-14] MEDS ORDERED: DEXAMETHASONE SOD PHOSPHATE 10 MG/1 ML VIAL IVPUSH ONE (19:35)
[2019-03-14] MEDS ORDERED: DEXAMETHASONE SOD PHOSPHATE 10 MG/1 ML VIAL ONE (20:05)
[2019-03-14] MEDS ORDERED: ATORVASTATIN CA 20 MG TABLET (FP) PO SCH (22:00)
[2019-03-14] MEDS ORDERED: INSULIN (LEVEMIR) 100 UNITS/ML UNITS SQ SCH (22:00)
[2019-03-14] MEDS: ATORVASTATIN CA 40 MG TABLET (FP) PO SCH (22:16)
[2019-03-14 22:54] VITALS: BMI 29.9
[2019-03-15 06:03] LABS: HEMOGLOBIN 14.6 GM/dL (11.7-16.9); MCH 31.6 pg (25.7-33.7); MCHC 33.9 g/dl (32.0-35.9); MEAN CELL VOLUME 93.1 fl (80-96); MEAN PLT VOLUME 11.1 fl (7.5-11.1); PLATELET COUNT 214 K/MM3 (134-434); RBC 4.62 M/mm3 (4.00-5.60); RDW 12.8 % (11.9-15.9); WHITE BLOOD COUNT 7.7 K/mm3 (4.0-10.0)
[2019-03-15 06:31] LABS: ANION GAP 7 MMOL/L (8-16); BLOOD UREA NITROGEN 21 mg/dL (7-18); CALCIUM 8.9 mg/dL (8.5-10.1); CHLORIDE 104 mmol/L (98-107); CO2 24 mmol/L (21-32); CREATININE 1.5 mg/dL (0.55-1.3); MAGNESIUM 2.1 mg/dL (1.8-2.4); PHOSPHOROUS 3.4 mg/dL (2.5-4.9); POTASSIUM 5.1 mmol/L (3.5-5.1); SODIUM 134 mmol/L (136-145)
[2019-03-15] MEDS: INSULIN SLIDING SCALE (NOVOLOG) 1 VIAL SQ SCH ×4 (06:40→21:11)
[2019-03-15] MEDS: HEPARIN NA (PORCINE) 5,000 UNITS/ML 1ML VIAL SQ SCH ×3 (06:40→21:10)
[2019-03-15 07:22] LABS: GLUCOSE,RANDOM 339 mg/dL (74-106)
[2019-03-15] MEDS ORDERED: INSULIN (LEVEMIR) 100 UNITS/ML UNITS SQ SCH ×2 (07:37→07:44)
[2019-03-15] MEDS: ASPIRIN 81 MG CHEWABLE TABLETS PO SCH (09:03)
[2019-03-15] MEDS ORDERED: CLOPIDOGREL BISULFATE 75 MG TABLET (FP) PO SCH (10:00)
[2019-03-15] MEDS: LABETALOL HCL 100 MG TABLET (FP) PO SCH ×2 (10:03→21:08)
[2019-03-15] MEDS: SODIUM CHLORIDE 1,000 ML IV SCH (10:04)
--- NOTE | 2019-03-15 10:22 | PN ---
Physical Exam: SUBJECTIVE: Patient seen and examined. Pt. was hypertensive overnight, allowed for post CVA permissive HTN. No seizures, no fevers, uneventful night. Pt. states he feels good. OBJECTIVE: Vital Signs Period Temp Pulse Resp BP Sys/Vargas Pulse Ox Last 24 Hr 97.5 F-98.5 F 90-104 16-20 122-159/89-112 95-99 GENERAL: The patient is awake, alert, and fully oriented, in no acute distress. HEAD: Normal with no signs of trauma. EYES: Pupil, extraocular movements intact, sclera anicteric, conjunctiva clear. No ptosis. ENT: Ears normal, nares patent, oropharynx clear without exudates, moist mucous membranes. NECK: Trachea midline, full range of motion, supple. LUNGS: Breath sounds equal, clear to auscultation bilaterally, no wheezes, no crackles, no accessory muscle use. HEART: Regular rate and rhythm, S1, S2 without murmur ABDOMEN: Soft, nontender, nondistended, normoactive bowel sounds, no guarding, no rebound EXTREMITIES: 2+ radial pulses, warm, no calf tenderness, well-perfused, no edema. NEUROLOGICAL: Cranial nerves II through XII grossly intact. Normal speech, gait not observed. PSYCH: Normal mood, normal affect. SKIN: Warm, dry, normal turgor, no rashes or lesions noted Laboratory Results - last 24 hr 03/14/19 03/14/19 03/14/19 01:33 11:05 11:23 WBC RBC Hgb Hct MCV MCH MCHC RDW Plt Count MPV Sodium Potassium Chloride Carbon Dioxide Anion Gap BUN Creatinine Creat Clearance w eGFR POC Glucometer 210 Random Glucose Calcium Phosphorus Magnesium Prolactin 20.0 H Opiates Screen Negative Methadone Screen Negative Barbiturate Screen Negative Phencyclidine Screen Negative Ur Amphetamines Screen Negative MDMA (Ecstasy) Screen Negative Benzodiazepines Screen Negative Cocaine Screen Negative U Marijuana (THC) Screen Negative Group A Strep Rapid 03/14/19 03/14/19 03/14/19 20:19 20:20 22:11 WBC RBC Hgb Hct MCV MCH MCHC RDW Plt Count MPV Sodium Potassium Chloride Carbon Dioxide Anion Gap BUN Creatinine Creat Clearance w eGFR POC Glucometer 186 182 Random Glucose Calcium Phosphorus Magnesium Prolactin Opiates Screen Methadone Screen Barbiturate Screen Phencyclidine Screen Ur Amphetamines Screen MDMA (Ecstasy) Screen Benzodiazepines Screen Cocaine Screen U Marijuana (THC) Screen Group A Strep Rapid Negative 03/15/19 03/15/19 03/15/19 05:30 05:30 05:42 WBC 7.7 RBC 4.62 Hgb 14.6 Hct 43.0 MCV 93.1 MCH 31.6 MCHC 33.9 RDW 12.8 Plt Count 214 MPV 11.1 Sodium 134 L Potassium 5.1 Chloride 104 Carbon Dioxide 24 Anion Gap 7 L BUN 21 H Creatinine 1.5 H Creat Clearance w eGFR 47.90 POC Glucometer 358 Random Glucose 339 H* Calcium 8.9 Phosphorus 3.4 Magnesium 2.1 Prolactin Opiates Screen Methadone Screen Barbiturate Screen Phencyclidine Screen Ur Amphetamines Screen MDMA (Ecstasy) Screen Benzodiazepines Screen Cocaine Screen U Marijuana (THC) Screen Group A Strep Rapid Active Medications Home Medications Medication Instructions Recorded Amlodipine Besylate [Norvasc -] 5 mg PO DAILY 03/14/19 Aspirin [ASA -] 81 mg PO DAILY 03/14/19 Atorvastatin Ca [Lipitor] 20 mg PO HS 03/14/19 Glipizide 10 mg PO DAILY 03/14/19 Lisinopril 5 mg PO DAILY 03/14/19 Metformin HCl [Glucophage] 1,000 mg PO BID 03/14/19 Current Medications Aspirin (Asa -) 81 mg PO DAILY [facility] Last Admin: 03/15/19 09:03 Dose: 81 mg Atorvastatin Calcium (Lipitor -) 40 mg PO [facility] Last Admin: 03/14/19 22:16 Dose: 40 mg Heparin Sodium (Porcine) (Heparin -) 5,000 unit SQ TID [facility] Last Admin: 03/15/19 06:40 Dose: 5,000 unit Sodium Chloride (Normal Saline -) 1,000 mls @ 75 mls/hr IV ASDIR [facility] Last Admin: 03/15/19 10:04 Dose: 75 mls/hr Insulin Aspart (Novolog Vial Sliding Scale -) 1 vial SQ [facility]; Protocol Last Admin: 03/15/19 06:40 Dose: 10 units Insulin Detemir (Levemir Vial) 15 units SQ [facility] Labetalol HCl (Normodyne -) 100 mg PO BID [facility] Last Admin: 03/15/19 10:03 Dose: 100 mg ASSESSMENT/PLAN: Pt. is a 59 y.o. M w/ PMHx NIDDM, HTN, HLD presents with new onset seizure disorder. #New onset Complex Partial Seizure likely 2/2 TIA 2/2 uncontrolled Diabetes and uncontrolled Hypertension Head CT Negative for acute pathology--> Rpt. Head CT unchanged from prior, both show L. cerebellar hypodensity with minimal mass effect? f/u MRI w/ contrast when Cr. improves EKG unremarkable, no ST-T segment changes, no TWI Non-compliant with medications LA: 3.7-->2.3 f/u MRI w/o contrast Carotid Duplex shows decrease in flow velocity from 80cm/s to 40cm/s suggestive of hemodynamic significant stenosis, f/u CTA once Cr. improves Echo(03/14/19): Trace TR, EF: 60-65% Increased Lipitor to 40mg Daily for HLD and intensification of statin post suspected CVA. Start ASA 81mg Given 1gm Keppra, c/w 500mg BID Neurology (Dr. Urias) and Neurosurgery(Dr. Soria) consults appreciated Speech and Swallow Consult appreciated: MBS if fever, cough and chills. ENT as outpatient for hoarseness of voice. #KIM 2/2 uncontrolled DM and HTN Likely has a baseline CKD given PMHx. and non-compliance Cr elevated to 2.1 now decreased to 1.8 (last known was 1.5 in 2014)--> Cr. 1.5 Renal US negative for acute pathology c/w IVF Hold Lisinopril until Cr. improves. #IDDM Pt. presented with hx. of NIDDM and Glucose 500s w/o AG A1c is 10.6 now confirmed IDDM. Non-compliant with medications at home, will c/w daily counseling to adhere to medications Increase Levemir to 15 units HS ISS ACHS BGM ACHS Dietary consult appreciated #HTN-uncontrolled 24 hr period of permissive HTN completed Increased Norvasc to 10mg Hold Lisinopril Avoid nephrotoxic agents at this time will start Labetalol 100mg BID #FEN NS @ 75ml/hr monitor electrolytes and replete as needed NPO #DVT Ppx. Heparin SQTID Visit type - Emergency Visit Emergency Visit: Yes ED Registration Date: 03/14/19 Care time: The patient presented to the Emergency Department on the above date and was hospitalized for further evaluation of their emergent condition. - New Patient This patient is new to me today: No - Critical Care Critical Care patient: No - Discharge Referral Referred to [facility] Med [facility].C.: No
[2019-03-15] MEDS ORDERED: BENZOCAINE/MENTH/CETYLPYRD CL 1 EACH LOZENGE MM PRN (12:37)
--- NOTE | 2019-03-15 12:37 | PN ---
Teaching Attending Note Name of Resident: Jesus Shaw ATTENDING PHYSICIAN STATEMENT I saw and evaluated the patient. I reviewed the resident's note and discussed the case with the resident. I agree with the resident's findings and plan as documented. SUBJECTIVE:asymptomatic. no repeat episodes of leg twitching. denies CP, SOB, fever, chills, N/V/C?D OBJECTIVE: Last Vital Signs Temp Pulse Resp BP Pulse Ox 98.3 F 98 H 18 151/92 96 03/15/19 10:00 03/15/19 10:00 03/15/19 10:00 03/15/19 10:03/15/19 09:00 General NAD CV S1 S2 RRR no murmur/rub/gallop Lungs CTA B/L no wheezing/rales/rhonchi Abdomen soft NT/ND Neuro raspy voice, ASSESSMENT AND PLAN: 59yo M with PMH DM, CKD, dyslipidemia, and newly diagnosed HTN with poor compliance presenting after witnessed seizure with noted tongue biting 1. Seizure- possible due electrolyte disturbances vs questionable mass. MRI showing focal edema in the L cerebellum that could be mass vs cerebritis. will obtain CT wtih small cuts through the cerebellum to further evaluate. start on keppra. s/p dex IM. neuro and neurosurg on board 2. old lacunar infarct- MRI now showing old lacunar infarct wtih chronic microbleed. does not appear to be acute. will d/c plavix. cont asa/statin. Echo noted. neuro on board 3. R common carotid stenosis- will need to further evaluate with CTA. will need to wait for more renal recovery. noah obtain prior to d/c. 4. acute on CKD- possible due to HTN episode. trending down. cont low dose IVF. avoid nephrotoxic agents. avoid nephrotoxic agents 5. lactic acidosis- due to seizure vs metformin. repeat 6. Hyperglycemia- A1c 10.6. uncontrolled. uncontrolled. increase levemir to 15 units. Further titration to optimize control. RN teaching. dietary consult. counselled on care home consequences of uncontrolled sugars 7. Hoarseness- improved. rapid strep negative. on lozengers 8. HTN- above goal. increase norvasc to 10mg. will start labetolol if remains above goal. will benefit from ACEI pending renal recovery 9. DVT ppx- hep sq
--- NOTE | 2019-03-15 12:48 | PN ---
Progress Note, PRODUCTION LINE MANAGER - Note Progress Note: Selected Entries 03/15/19 03/15/19 03/15/19 02:00 06:00 09:52 Breakfast 100% Diet Tolerated Fair Well Temperature 97.5 F L 98.1 F 03/15/19 10:00 Breakfast Diet Tolerated Temperature 98.3 F Laboratory Tests 03/15/19 05:30 WBC 7.7 Alert, verbal, Articulation, language, cognition intact. Swallowing overtly intact. Tolerating diet. Persistent Aphonia. Pending MRI. Consider : ENT consult to visualize vocal cords-r/o vocal cord dysfunction.
[2019-03-15] MEDS ORDERED: PT OWN MED DRAWER 7, Y5N ONE ×3 (13:00→20:54)
[2019-03-15] MEDS: levETIRAcetam 500 MG/5 ML ORAL SOLUTION (UNIT-DOSE CUPS) PO SCH ×2 (13:15→21:08)
--- NOTE | 2019-03-15 20:25 | PN ---
Progress Note (short form) - Note Progress Note: Patient was resting comfortably in bed when encountered. No further seizure activity. Imaging workup continues. No supratentorial or cortical pathology noted which may be irritant resulting in seizures. Small, Left middle cerebellar peduncle enhancing focus of unclear nature. Will review differential diagnosis with Neurology and Neuroradiology.
[2019-03-15] MEDS: ATORVASTATIN CA 40 MG TABLET (FP) PO SCH (21:08)
[2019-03-15] MEDS: ACETYLCYSTEINE 20% 200MG/ML 30 ML VIAL *FOR ORAL / INH USE ONLY PO SCH (21:15)
[2019-03-16] MEDS: HEPARIN NA (PORCINE) 5,000 UNITS/ML 1ML VIAL SQ SCH ×3 (05:40→21:02)
[2019-03-16] MEDS: INSULIN SLIDING SCALE (NOVOLOG) 1 VIAL SQ SCH ×4 (06:30→21:03)
[2019-03-16] MEDS ORDERED: PT OWN MED DRAWER 7, Y5N ONE ×2 (09:17→19:34)
[2019-03-16] MEDS: SODIUM CHLORIDE 1,000 ML IV SCH ×4 (09:26→23:34)
[2019-03-16] MEDS: levETIRAcetam 500 MG/5 ML ORAL SOLUTION (UNIT-DOSE CUPS) PO SCH ×2 (09:26→21:02)
[2019-03-16] MEDS: ASPIRIN 81 MG CHEWABLE TABLETS PO SCH (09:26)
[2019-03-16] MEDS: LABETALOL HCL 100 MG TABLET (FP) PO SCH ×2 (09:26→21:02)
[2019-03-16] MEDS: ACETYLCYSTEINE 20% 200MG/ML 30 ML VIAL *FOR ORAL / INH USE ONLY PO SCH ×2 (09:29→21:03)
--- NOTE | 2019-03-16 09:58 | PN ---
Progress Note (short form) - Note Progress Note: Patient resting comfortably in bed. No new seizure activity. MRI with low dose Gadolinium demonstrates a 6mm enhancing lesion in the Left Cerebellar hemisphere near the middle Cerebellar peduncle. This is most consistent with metastatic focus. Patient has no known malignancy, however, he has a family history of Prostate cancer. He reports that his PSA was normal several months ago. Repeat sample was sent and is pending. Patient with Carotid stenosis and is planned for angiography/CTA. Metastatic survey also planned with CT Chest, Abdomen and Pelvis. These investigations will need to be coordinated in light of diminished renal function (I am not certain whether CT Chest/Abdomen/Pelvis obtained after CTA would have sufficient circulating contrast to obviate the need for a separate injection). Although solitary metastatic tumors are generally best treated with microsurgical resection, the deep location of this lesion makes surgery somewhat less preferable for initial managment. If a primary is identified, it may be possible to treat the brain lesion with stereotactic radiosurgery. If no primary is identified and tissue diagnosis is required, it may be possible to biopsy/resect this lesion. Will follow with the team.
--- NOTE | 2019-03-16 12:55 | PN ---
Progress Note (short form) - Note Progress Note: c/o hoarse voice, was improved this AM and now hoarse again. denies CP, SOB, fever, chills, N/V/C/D, no seizure like activity denies ever smoking strong family hx for prostate ca mother had liver cancer unsure of her underlying diseases Current Medications Generic Name Dose Route Start Last Admin Trade Name Freq PRN Reason Stop Dose Admin Acetylcysteine 600 mg 03/15/19 22:00 03/16/19 09:29 Mucomyst 20 Oral / Inh Use Only* PO 600 mg BID MAXI Administration Aspirin 81 mg 03/14/19 10:00 03/16/19 09:26 Asa - PO 81 mg DAILY MAXI Administration Atorvastatin Calcium 40 mg 03/14/19 22:00 03/15/19 21:08 Lipitor - PO 40 mg HS MAXI Administration Benzocaine/Menthol 1 each 03/15/19 12:37 03/15/19 13:01 Cepacol Lozenge - MM 1 each PRN PRN Administration SORE THROAT Heparin Sodium (Porcine) 5,000 unit 03/14/19 06:00 03/16/19 05:40 Heparin - SQ 5,000 unit TID MAXI Administration Sodium Chloride 1,000 mls @ 75 mls/hr 03/15/19 10:00 03/16/19 09:26 Normal Saline - IV 75 mls/hr ASDIR MAXI Administration Insulin Aspart 1 vial 03/14/19 07:00 03/16/19 12:01 Novolog Vial Sliding Scale - SQ 6 units ACHS MAXI Administration Protocol Insulin Detemir 15 units 03/15/19 07:44 03/15/19 21:11 Levemir Vial SQ 15 units HS MAXI Administration Labetalol HCl 100 mg 03/15/19 10:00 03/16/19 09:26 Normodyne - PO 100 mg BID MAXI Administration Levetiracetam 500 mg 03/15/19 12:30 03/16/19 09:26 Keppra Oral Solution - PO 500 mg BID MAXI Administration Last Vital Signs Temp Pulse Resp BP Pulse Ox 97.6 F 96 H 20 143/94 97 03/16/19 06:00 03/16/19 06:00 03/16/19 09:00 03/16/19 06:00 03/16/19 09:00 General NAD CV S1 S2 RRR no murmur/rub/gallop Lungs CTA B/L no wheezing/rales/rhonchi Abdomen soft NT/ND Neuro raspy voice, ASSESSMENT AND PLAN: 59yo M with PMH DM, CKD, dyslipidemia, and newly diagnosed HTN with poor compliance presenting after witnessed seizure with noted tongue biting 1. Seizure- possible due electrolyte disturbances vs questionable mass. MRI with cerebellar mass not liekly to cause seizure activity but high possibility there are other lesions not identified due to low daphney given. will need repeat MRI vs PET scan in the future. will obtain CT chest/abdomen/pelvis with contrast. awaiting for renal function to see if contrast can be given. oncology consult. no seizure like activity. on keppra. neuro and neurosurg on board 2. old lacunar infarct- MRI now showing old lacunar infarct wtih chronic microbleed. does not appear to be acute. cont asa/statin. Echo noted. neuro on board 3. R common carotid stenosis- will need to further evaluate with CTA. will need to wait for more renal recovery. noah obtain prior to d/c. 4. acute on CKD- possible due to HTN episode. awaiting repeat labs. started on acetylcystine to prevent renal injury. cont low dose IVF. avoid nephrotoxic agents. avoid nephrotoxic agents 5. lactic acidosis- due to seizure vs metformin. repeat 6. Hyperglycemia- A1c 10.6. uncontrolled. uncontrolled. increase levemir to 20 units. Further titration to optimize control. RN teaching. dietary consult. 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 Hoarseness- remains hoarse, if persists on monday will call ENT to evaluate 8. HTN- improved. cont current management. will benefit from ACEI pending renal recovery 9. DVT ppx- hep sq 10. spoke with meghan present at bedside. all questions answered Visit type - Emergency Visit Emergency Visit: Yes ED Registration Date: 03/14/19 Care time: The patient presented to the Emergency Department on the above date and was hospitalized for further evaluation of their emergent condition. - New Patient This patient is new to me today: No - Critical Care Critical Care patient: No - Discharge Referral Referred to [facility] Med P.C.: No
[2019-03-16 16:02] LABS: ANION GAP 6 MMOL/L (8-16); BLOOD UREA NITROGEN 24 mg/dL (7-18); CALCIUM 8.3 mg/dL (8.5-10.1); CHLORIDE 107 mmol/L (98-107); CO2 24 mmol/L (21-32); CREATININE 1.8 mg/dL (0.55-1.3); POTASSIUM 4.1 mmol/L (3.5-5.1); SODIUM 137 mmol/L (136-145)
[2019-03-16 16:21] LABS: GLUCOSE,RANDOM 302 mg/dL (74-106)
[2019-03-16] MEDS: ATORVASTATIN CA 40 MG TABLET (FP) PO SCH (21:02)
[2019-03-16] MEDS: INSULIN (LEVEMIR) 100 UNITS/ML UNITS SQ SCH (21:02)
--- NOTE | 2019-03-16 23:14 | CONSULT ---
Consult Consult Specialty:: oncology Referred by:: Dr. Escalante Reason for Consultation:: brain mass - History of Present Illness Chief Complaint: seizure History of Present Illness: 59M with NIDDM, HTN, CKD, HLD, BIBEMS last night after a new onset of tonic- clinic seizures. Developed more seizures in ED, broken with ativan and versed. Started on AED. MRI with contrast revealed vasogenic edema in superior medial aspect of left cerebellar hemisphere; left middle cerebellar peduncle with mass effect on left lateral recess of fourth ventricle; solid enhancing lesion measuring 6.5 mm, in largest dimension, in left cerebellar hemisphere; low signal intensity at the site of enhancing lesion (?blood product). Evaluated by neurology, neurosurgery. Pt reports feeling fine prior to onset of seizures except for odynophagia and hoarseness for a few days. Denies weight loss, fevers, weight loss, melena, hematochezia. Non-smoker. Does have a strong family history on mother's side -- primarily breast and prostate cancer (in several brothers). Currently has no complaints. - Alcohol/Substance Use Hx Alcohol Use: No - Smoking History Smoking history: Unknown if ever smoked Have you smoked in the past 12 months: No Aproximately how many cigarettes per day: 0 Home Medications - Allergies Allergies/Adverse Reactions: Allergies Allergy/AdvReac Type Severity Reaction Status Date / Time No Known Allergies Allergy Verified 03/14/19 02:02 - Home Medications Home Medications: Ambulatory Orders Amlodipine Besylate [Norvasc -] 5 mg PO DAILY 03/14/19 Aspirin [ASA -] 81 mg PO DAILY 03/14/19 Atorvastatin Ca [Lipitor] 20 mg PO HS 03/14/19 Glipizide 10 mg PO DAILY 03/14/19 Lisinopril 5 mg PO DAILY 03/14/19 Metformin HCl [Glucophage] 1,000 mg PO BID 03/14/19 Review of Systems - Review of Systems Constitutional: reports: No Symptoms Eyes: reports: No Symptoms HENT: reports: Other (odynophagia, hoarseness) Cardiovascular: reports: No Symptoms Respiratory: reports: No Symptoms Gastrointestinal: reports: No Symptoms Genitourinary: reports: No Symptoms Physical Exam Vital Signs: Vital Signs Temperature 98.0 F 03/16/19 21:22 Pulse Rate 86 03/16/19 21:22 Respiratory Rate 20 03/16/19 21:22 Blood Pressure 137/90 03/16/19 21:22 O2 Sat by Pulse Oximetry (%) 97 03/16/19 21:00 Constitutional: Yes: No Distress, Calm Eyes: Yes: Conjunctiva Clear HENT: Yes: Atraumatic Neck: Yes: Thyromegaly. No: Lymphadenopathy Cardiovascular: Yes: Regular Rate and Rhythm Respiratory: Yes: Regular, CTA Bilaterally Gastrointestinal: No: Distention, Palpable Mass, Tenderness Edema: No Neurological: Yes: Alert, Oriented. No: Aphasia, Confusion Labs: CBC, BMP 03/15/19 05:30 03/16/19 15:05 Imaging - Results Chest X-ray: Report Reviewed X-ray: Report Reviewed Cat Scan: Report Reviewed MRI: Report Reviewed Assessment/Plan 59M with NIDDM, HTN, CKD, HLD, BIBEMS last night after a new onset of tonic- clinic seizures and hoarseness. MRI with small enhancing cerebellar lesion and vasogenic edema. ?metastatic disease. No localizing symptoms. ?hoarseness due to cerebellar area lesion/edema. Strong family hx of cancer. Please obtain CT abd/pel/chest/neck. If cannot use contrast due to renal failure, may need f/u PET scan. If any neurologic symptoms develop, including recurrent seizures, would start decadron (10 mg x 1, followed by 4 mg every 6 hours) for vasogenic edema. While remains asymptomatic, would hold off as steroids can affect imaging /biopsy results. Will follow closely.
[2019-03-17] MEDS: INSULIN SLIDING SCALE (NOVOLOG) 1 VIAL SQ SCH ×4 (06:24→22:16)
[2019-03-17] MEDS: HEPARIN NA (PORCINE) 5,000 UNITS/ML 1ML VIAL SQ SCH ×3 (06:24→22:15)
[2019-03-17 07:47] LABS: ANION GAP 7 MMOL/L (8-16); BLOOD UREA NITROGEN 18 mg/dL (7-18); CALCIUM 8.4 mg/dL (8.5-10.1); CHLORIDE 110 mmol/L (98-107); CHOLESTEROL 177 mg/dL (50-200); CO2 28 mmol/L (21-32); CREATININE 1.4 mg/dL (0.55-1.3); GLUCOSE,RANDOM 159 mg/dL (74-106); HDL CHOLESTEROL 48 mg/dL (40-60); POTASSIUM 4.5 mmol/L (3.5-5.1); SODIUM 145 mmol/L (136-145); TRIGLYCERIDES 119 mg/dL (0-150)
[2019-03-17 08:28] LABS: MAGNESIUM 2.4 mg/dL (1.8-2.4)
[2019-03-17] MEDS ORDERED: PT OWN MED DRAWER 7, Y5N ONE ×3 (08:35→22:28)
[2019-03-17] MEDS: ACETYLCYSTEINE 20% 200MG/ML 30 ML VIAL *FOR ORAL / INH USE ONLY PO SCH ×2 (09:21→22:30)
[2019-03-17] MEDS: ASPIRIN 81 MG CHEWABLE TABLETS PO SCH (09:22)
[2019-03-17] MEDS: LABETALOL HCL 100 MG TABLET (FP) PO SCH ×2 (09:22→22:15)
[2019-03-17] MEDS: levETIRAcetam 500 MG/5 ML ORAL SOLUTION (UNIT-DOSE CUPS) PO SCH ×2 (09:22→22:16)
--- NOTE | 2019-03-17 11:06 | PN ---
Physical Exam: SUBJECTIVE: Patient seen and examined at bedside. Voice is still hoarse. No overnight events. OBJECTIVE: Vital Signs Period Temp Pulse Resp BP Sys/Vargas Pulse Ox Last 24 Hr 97.7 F-98.3 F 84-87 18-20 137-146/68-95 97-97 GENERAL: A&Ox3, no acute distress EYES: PERRLA, EOMI ENT: Moist mucus membranes, voice is hoarse NECK: No JVD LUNGS: CTA, no wheezes HEART: RRR, no murmurs ABDOMEN: Soft, nontender, BS present MUSCULOSKELETAL: No CVA Tenderness EXTREMITIES: 2+ pulses, no edema. NEUROLOGICAL: Cranial nerves II-XII intact. Laboratory Results - last 24 hr 03/15/19 03/16/19 03/16/19 16:30 11:47 15:05 Sodium 137 Potassium 4.1 Chloride 107 Carbon Dioxide 24 Anion Gap 6 L BUN 24 H Creatinine 1.8 H Creat Clearance w eGFR 38.81 POC Glucometer 275 Random Glucose 302 H* Calcium 8.3 L Phosphorus Magnesium Triglycerides Cholesterol Total LDL Cholesterol HDL Cholesterol Prostate Specific Ag 1.30 03/16/19 03/16/19 03/17/19 17:00 20:44 05:50 Sodium 145 Potassium 4.5 Chloride 110 H Carbon Dioxide 28 Anion Gap 7 L BUN 18 Creatinine 1.4 H Creat Clearance w eGFR 51.87 POC Glucometer 277 225 Random Glucose 159 H Calcium 8.4 L Phosphorus 4.0 Magnesium 2.4 Triglycerides 119 Cholesterol 177 Total LDL Cholesterol 113 H HDL Cholesterol 48 Prostate Specific Ag 03/17/19 06:19 Sodium Potassium Chloride Carbon Dioxide Anion Gap BUN Creatinine Creat Clearance w eGFR POC Glucometer 154 Random Glucose Calcium Phosphorus Magnesium Triglycerides Cholesterol Total LDL Cholesterol HDL Cholesterol Prostate Specific Ag Active Medications Generic Name Dose Route Start Last Admin Trade Name Freq PRN Reason Stop Dose Admin Acetylcysteine 600 mg 03/15/19 22:00 03/17/19 09:21 Mucomyst 20 Oral / Inh Use Only* PO 600 mg BID MAXI Administration Aspirin 81 mg 03/14/19 10:00 03/17/19 09:22 Asa - PO 81 mg DAILY MAXI Administration Atorvastatin Calcium 40 mg 03/14/19 22:00 03/16/19 21:02 Lipitor - PO 40 mg HS MAXI Administration Benzocaine/Menthol 1 each 03/15/19 12:37 03/15/19 13:01 Cepacol Lozenge - MM 1 each PRN PRN Administration SORE THROAT Heparin Sodium (Porcine) 5,000 unit 03/14/19 06:00 03/17/19 06:24 Heparin - SQ 5,000 unit TID MAXI Administration Sodium Chloride 1,000 mls @ 125 mls/hr 03/16/19 16:19 03/16/19 23:34 Normal Saline - IV 125 mls/hr ASDIR MAXI Administration Insulin Aspart 1 vial 03/14/19 07:00 03/17/19 06:24 Novolog Vial Sliding Scale - SQ 2 units ACHS MAXI Administration Protocol Insulin Detemir 20 units 03/16/19 14:23 03/16/19 21:02 Levemir Vial SQ 20 units HS MAXI Administration Labetalol HCl 100 mg 03/15/19 10:00 03/17/19 09:22 Normodyne - PO 100 mg BID MAXI Administration Levetiracetam 500 mg 03/15/19 12:30 03/17/19 09:22 Keppra Oral Solution - PO 500 mg BID MAXI Administration ASSESSMENT/PLAN: 59 year old male w/ PMHx NIDDM, HTN, HLD presented with new seizures likely 2/2 cerebellar mass #New onset Complex Partial Seizure: likely 2/2 to cerebellar mass, no recurrent seizures -Head CT Negative -MRI showed likely mass-like structure -will need -Carotid Duplex shows decrease in flow velocity from 80cm/s to 40cm/s suggestive of hemodynamic significant stenosis -CTA when Cre improves Echo(03/14/19): Trace TR, EF: 60-65% -continue lipitor 40 -continue ASA 81 -continue keppra 500 BID Neurology (Dr. Urias) and Neurosurgery(Dr. Soria) consults appreciated -ENT outpatient for hoarseness -will get thyroid US -will need macdonald scan of body to assess for primary cancer #KIM: likely prerenal as patient is improving, creatinine 1.4 today but probably has underlying chronic pathology -Renal US negative for acute pathology -continue IV fluids -holding nephrotoxic meds #IDDM Pt. presented with hx. of NIDDM and Glucose 500s w/o AG A1c is 10.6 now confirmed IDDM. Non-compliant with medications at home, will c/w daily counseling to adhere to medications Levemir 20 units HS ISS ACHS BGM ACHS Dietary consult appreciated #HTN-uncontrolled Increased Norvasc to 10mg Hold Lisinopril Avoid nephrotoxic agents at this time -Continue labetalol #FEN NS @ 125ml/hr monitor electrolytes and replete as needed diet ordered #DVT Ppx. Heparin SQTID #Dispo -tele Visit type - Emergency Visit Emergency Visit: Yes ED Registration Date: 03/14/19 Care time: The patient presented to the Emergency Department on the above date and was hospitalized for further evaluation of their emergent condition. - New Patient This patient is new to me today: No - Critical Care Critical Care patient: No
--- NOTE | 2019-03-17 11:52 | PN ---
Teaching Attending Note Name of Resident: Jcarlos Luna ATTENDING PHYSICIAN STATEMENT I saw and evaluated the patient. I reviewed the resident's note and discussed the case with the resident. I agree with the resident's findings and plan as documented. SUBJECTIVE: OBJECTIVE: aaox3 s1 and s2 rrr lungs CTA good air entry abdomen soft non-tender no edema hoarse voice ASSESSMENT AND PLAN: this is a 59 year old male w/ PMHx NIDDM, HTN, HLD presented with new seizures likely 2/2 cerebellar mass #New onset Complex Partial Seizure: likely 2/2 to cerebellar mass, no recurrent seizures -Head CT Negative -MRI showed likely mass-like structure -Carotid Duplex shows decrease in flow velocity from 80cm/s to 40cm/s suggestive of hemodynamic significant stenosis -CTA when Cre improves - patient requires CT scan with contrast for the evaluation of possible metastic cancer, however due to the resolving KIM i have discussed with the patient that there is no emergency of obtain an CT scan at this point and exposing the patient to contrast in the state where his KIM is resolving. will hold off and obtain the scan when the patient kidney function improves or is stable Echo(03/14/19): Trace TR, EF: 60-65% -continue atorvastatin 40mg daily -continue ASA 81 -continue keppra 500 BID Neurology (Dr. Urias) and Neurosurgery(Dr. Soria) consults appreciated -ENT outpatient for hoarseness -will get thyroid US -will need macdonald scan of body to assess for primary cancer #KIM: likely prerenal as patient is improving, creatinine 1.4 today but probably has underlying chronic pathology -Renal US negative for acute pathology -continue IV fluids -holding nephrotoxic meds Hoarsness: viral vs metastatic vs local infiltration of tumor (thyroid vs pancoast tumor of laryngeal nerve) - ENT evaluation - thyroid ultrasound - Chest CT scan #IDDM Pt. presented with hx. of NIDDM and Glucose 500s w/o AG A1c is 10.6 now confirmed IDDM. Non-compliant with medications at home, will c/w daily counseling to adhere to medications Levemir 20 units HS ISS ACHS BGM ACHS Dietary consult appreciated #HTN-uncontrolled Increased amlodapine to 10mg Hold Lisinopril Avoid nephrotoxic agents at this time -Continue labetalol
[2019-03-17] MEDS: SODIUM CHLORIDE 1,000 ML IV SCH (17:07)
--- NOTE | 2019-03-17 17:10 | PN ---
Progress Note (short form) - Note Progress Note: Patient is stable with no new seizures and persisting hoarseness. Metastatic survey pending improvement in renal function.
--- NOTE | 2019-03-17 18:27 | PN ---
Progress Note, Physician History of Present Illness: Hoarseness unchanged but otherwise feels well. Denies headache, blurry vision, weakness, parasthesias. - Current Medication List Current Medications: Active Medications Acetylcysteine (Mucomyst 20 Oral / Inh Use Only*) 600 mg PO BID [facility] Last Admin: 03/17/19 09:21 Dose: 600 mg Aspirin (Asa -) 81 mg PO DAILY [facility] Last Admin: 03/17/19 09:22 Dose: 81 mg Atorvastatin Calcium (Lipitor -) 40 mg PO HS [facility] Last Admin: 03/16/19 21:02 Dose: 40 mg Benzocaine/Menthol (Cepacol Lozenge -) 1 each MM PRN PRN PRN Reason: SORE THROAT Last Admin: 03/15/19 13:01 Dose: 1 each Heparin Sodium (Porcine) (Heparin -) 5,000 unit SQ TID [facility] Last Admin: 03/17/19 14:39 Dose: 5,000 unit Sodium Chloride (Normal Saline -) 1,000 mls @ 125 mls/hr IV ASDIR [facility] Last Admin: 03/17/19 17:07 Dose: 125 mls/hr Insulin Aspart (Novolog Vial Sliding Scale -) 1 vial SQ [facility]; Protocol Last Admin: 03/17/19 17:07 Dose: 4 units Insulin Detemir (Levemir Vial) 20 units SQ [facility] Last Admin: 03/16/19 21:02 Dose: 20 units Labetalol HCl (Normodyne -) 100 mg PO BID [facility] Last Admin: 03/17/19 09:22 Dose: 100 mg Levetiracetam (Keppra Oral Solution -) 500 mg PO BID [facility] Last Admin: 03/17/19 09:22 Dose: 500 mg - Objective Vital Signs: Vital Signs Temperature 98.1 F 03/17/19 14:32 Pulse Rate 89 03/17/19 14:32 Respiratory Rate 20 03/17/19 14:32 Blood Pressure 133/84 03/17/19 14:32 O2 Sat by Pulse Oximetry (%) 97 03/17/19 09:00 Constitutional: Yes: Well Nourished, No Distress, Calm Eyes: Yes: Conjunctiva Clear Cardiovascular: Yes: Regular Rate and Rhythm Respiratory: Yes: Regular, CTA Bilaterally Gastrointestinal: Yes: Soft Extremities: Yes: Amputation Labs: CBC, BMP 03/15/19 05:30 05/05/19 05:50 Assessment/Plan 59M with NIDDM, HTN, CKD, HLD admitted with new onset of tonic-clinic seizures and hoarseness. MRI with small enhancing cerebellar lesion and vasogenic edema. ?metastatic disease. No localizing symptoms. ?hoarseness due to cerebellar area lesion/edema. Strong family hx of cancer. Awaiting CT abd/pel/chest/neck as renal function continues to improve. If any neurologic symptoms develop, including recurrent seizures, would start decadron (10 mg x 1, followed by 4 mg every 6 hours) for vasogenic edema. While remains asymptomatic, would hold off as steroids can affect imaging/biopsy results. Will follow closely.
[2019-03-17] MEDS: ATORVASTATIN CA 40 MG TABLET (FP) PO SCH (22:15)
[2019-03-17] MEDS: INSULIN (LEVEMIR) 100 UNITS/ML UNITS SQ SCH (22:16)
[2019-03-18] MEDS: SODIUM CHLORIDE 1,000 ML IV SCH ×3 (01:12→17:15)
[2019-03-18] MEDS: INSULIN SLIDING SCALE (NOVOLOG) 1 VIAL SQ SCH ×4 (06:46→21:33)
[2019-03-18] MEDS: HEPARIN NA (PORCINE) 5,000 UNITS/ML 1ML VIAL SQ SCH ×3 (06:47→21:30)
[2019-03-18] MEDS ORDERED: PT OWN MED DRAWER 7, Y5N ONE (09:11)
[2019-03-18] MEDS: ASPIRIN 81 MG CHEWABLE TABLETS PO SCH (09:16)
[2019-03-18] MEDS: levETIRAcetam 500 MG/5 ML ORAL SOLUTION (UNIT-DOSE CUPS) PO SCH ×2 (09:16→21:30)
[2019-03-18] MEDS: LABETALOL HCL 100 MG TABLET (FP) PO SCH ×2 (09:16→21:30)
[2019-03-18] MEDS: ACETYLCYSTEINE 20% 200MG/ML 30 ML VIAL *FOR ORAL / INH USE ONLY PO SCH ×2 (09:20→21:47)
[2019-03-18 10:19] LABS: ANION GAP 5 MMOL/L (8-16); BLOOD UREA NITROGEN 15 mg/dL (7-18); CALCIUM 8.3 mg/dL (8.5-10.1); CHLORIDE 110 mmol/L (98-107); CO2 25 mmol/L (21-32); CREATININE 1.3 mg/dL (0.55-1.3); GLUCOSE,RANDOM 221 mg/dL (74-106); POTASSIUM 3.9 mmol/L (3.5-5.1); SODIUM 140 mmol/L (136-145)
--- NOTE | 2019-03-18 12:34 | PN ---
Progress Note, STAFFING BRANCH MANAGER - Note Progress Note: Alert, verbal, Articulation, language, cognition intact. Swallowing overtly intact. Tolerating diet. Persistent Aphonia. MRI noted. Consider : ENT consult to visualize vocal cords-r/o vocal cord dysfunction.
[2019-03-18] MEDS: DEXAMETHASONE SOD PHOSPHATE 4 MG/1 ML VIAL IVPUSH SCH ×2 (14:00→21:28)
--- NOTE | 2019-03-18 14:04 | PN ---
Physical Exam: SUBJECTIVE: Patient seen and examined Patient is resting in bed NAD. afebrile hemodynamically stable, no acute events , no more sz. feels well, denies h/a, change in vision, tinnitus, confusion. negative colonoscopy 1 yr ago normal psa half a year ago. 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 strong family history of prostate CA in 5 brothers in their 40's-50's OBJECTIVE: Vital Signs Period Temp Pulse Resp BP Sys/Vargas Pulse Ox Last 24 Hr 97.7 F-98.2 F 78-89 16-20 133-158/81-98 98-98 GENERAL: The patient is awake, alert, and fully oriented, in no acute distress. HEAD: Normal with no signs of trauma. EYES: PERRL, extraocular movements intact, sclera anicteric, conjunctiva clear. No ptosis. ENT: moist mucous membranes. NECK: supple no cervical or supraclaavicular adenopathy. LUNGS: Breath sounds equal, clear to auscultation bilaterally, no wheezes, no crackles, no accessory muscle use. HEART: Regular rate and rhythm, S1, S2 ABDOMEN: Soft, nontender, nondistended, normoactive bowel sounds, no guarding, no rebound, no hepatosplenomegaly, no masses, no periumbilical adenopathy EXTREMITIES: 2+ pulses, warm, well-perfused, no edema. NEUROLOGICAL: Cranial nerves II through XII grossly intact. Normal speech, gait not observed. PSYCH: Normal mood, normal affect. SKIN: Warm, dry Laboratory Results - last 24 hr 03/17/19 03/17/19 03/18/19 17:06 21:03 05:36 Sodium Potassium Chloride Carbon Dioxide Anion Gap BUN Creatinine Creat Clearance w eGFR POC Glucometer 215 233 179 Random Glucose Calcium 03/18/19 03/18/19 09:35 11:33 Sodium 140 Potassium 3.9 Chloride 110 H Carbon Dioxide 25 Anion Gap 5 L BUN 15 Creatinine 1.3 Creat Clearance w eGFR 56.50 POC Glucometer 207 Random Glucose 221 H Calcium 8.3 L Active Medications Generic Name Dose Route Start Last Admin Trade Name Freq PRN Reason Stop Dose Admin Acetylcysteine 600 mg 03/15/19 22:00 03/18/19 09:20 Mucomyst 20 Oral / Inh Use Only* PO 600 mg BID MAXI Administration Aspirin 81 mg 03/14/19 10:00 03/18/19 09:16 Asa - PO 81 mg DAILY MAXI Administration Atorvastatin Calcium 40 mg 03/14/19 22:00 03/17/19 22:15 Lipitor - PO 40 mg HS MAXI Administration Benzocaine/Menthol 1 each 03/15/19 12:37 03/15/19 13:01 Cepacol Lozenge - MM 1 each PRN PRN Administration SORE THROAT Dexamethasone Sodium Phosphate 4 mg 03/18/19 15:00 03/18/19 14:00 Decadron Injection - IVPUSH 4 mg Q6H-IV MAXI Administration Heparin Sodium (Porcine) 5,000 unit 03/14/19 06:00 03/18/19 13:28 Heparin - SQ 5,000 unit TID MAXI Administration Sodium Chloride 1,000 mls @ 125 mls/hr 03/16/19 16:19 03/18/19 08:58 Normal Saline - IV 125 mls/hr ASDIR MAXI Administration Insulin Aspart 1 vial 03/14/19 07:00 03/18/19 12:00 Novolog Vial Sliding Scale - SQ 4 units ACHS MAXI Administration Protocol Insulin Detemir 20 units 03/16/19 14:23 03/17/19 22:16 Levemir Vial SQ 20 units HS MAXI Administration Labetalol HCl 100 mg 03/15/19 10:00 03/18/19 09:16 Normodyne - PO 100 mg BID MAXI Administration Levetiracetam 500 mg 03/15/19 12:30 03/18/19 09:16 Keppra Oral Solution - PO 500 mg BID MAXI Administration ASSESSMENT/PLAN: This is a 59 yo M with PMH of NIDDM, HTN, CKD, HLD, who presented due to new onset of tonic-clinic SZ and hoarseness. MRI with small enhancing cerebellar lesion and vasogenic edema. Cerebellar mass with mild mass effect r/o metastatic disease. new onset tonic clonic SZ NIDDM HTN HLD CKD -primary tumor workup f/u CT abd/pel/chest/neck; f/u renal about safety of contrast use in setting of ckd; if not possible obtain PET -f/u psa due to strong prostate CA family history. prostate CA doesnt typically metastasize to brain -hoarseness consistent with cerebellar lesion/edema; start decadron 4q 6 and monitor BGMs, gi ppx
--- NOTE | 2019-03-18 14:45 | PN ---
Physical Exam: SUBJECTIVE: Patient seen and examined. Everything is ok. Pt. denies any fevers, or seizure activity. OBJECTIVE: Vital Signs Period Temp Pulse Resp BP Sys/Vargas Pulse Ox Last 24 Hr 97.7 F-98.2 F 78-88 16-18 137-158/81-98 98-98 GENERAL: The patient is awake, alert, and fully oriented, in no acute distress. HEAD: Normal with no signs of trauma. EYES: Pupil, extraocular movements intact, sclera anicteric, conjunctiva clear. No ptosis. ENT: Ears normal, nares patent, oropharynx clear without exudates, moist mucous membranes. NECK: Trachea midline, full range of motion, supple. LUNGS: Breath sounds equal, clear to auscultation bilaterally, no wheezes, no crackles, no accessory muscle use. HEART: Regular rate and rhythm, S1, S2 without murmur ABDOMEN: Soft, nontender, nondistended, normoactive bowel sounds, no guarding, no rebound EXTREMITIES: 2+ radial pulses, warm, no calf tenderness, well-perfused, no edema. NEUROLOGICAL: Cranial nerves II through XII grossly intact. Normal speech, gait not observed. PSYCH: Normal mood, normal affect. SKIN: Warm, dry, normal turgor, no rashes or lesions noted Laboratory Results - last 24 hr 03/17/19 03/17/19 03/18/19 17:06 21:03 05:36 Sodium Potassium Chloride Carbon Dioxide Anion Gap BUN Creatinine Creat Clearance w eGFR POC Glucometer 215 233 179 Random Glucose Calcium 03/18/19 03/18/19 09:35 11:33 Sodium 140 Potassium 3.9 Chloride 110 H Carbon Dioxide 25 Anion Gap 5 L BUN 15 Creatinine 1.3 Creat Clearance w eGFR 56.50 POC Glucometer 207 Random Glucose 221 H Calcium 8.3 L Active Medications Home Medications Medication Instructions Recorded Amlodipine Besylate [Norvasc -] 5 mg PO DAILY 03/14/19 Aspirin [ASA -] 81 mg PO DAILY 03/14/19 Atorvastatin Ca [Lipitor] 20 mg PO HS 03/14/19 Glipizide 10 mg PO DAILY 03/14/19 Lisinopril 5 mg PO DAILY 03/14/19 Metformin HCl [Glucophage] 1,000 mg PO BID 03/14/19 Current Medications Acetylcysteine (Mucomyst 20 Oral / Inh Use Only*) 600 mg PO BID [facility] Last Admin: 03/18/19 09:20 Dose: 600 mg Aspirin (Asa -) 81 mg PO DAILY [facility] Last Admin: 03/18/19 09:16 Dose: 81 mg Atorvastatin Calcium (Lipitor -) 40 mg PO HS [facility] Last Admin: 03/17/19 22:15 Dose: 40 mg Benzocaine/Menthol (Cepacol Lozenge -) 1 each MM PRN PRN PRN Reason: SORE THROAT Last Admin: 03/15/19 13:01 Dose: 1 each Dexamethasone Sodium Phosphate (Decadron Injection -) 4 mg IVPUSH Q6H-IV [facility] Last Admin: 03/18/19 14:00 Dose: 4 mg Heparin Sodium (Porcine) (Heparin -) 5,000 unit SQ TID [facility] Last Admin: 03/18/19 13:28 Dose: 5,000 unit Sodium Chloride (Normal Saline -) 1,000 mls @ 125 mls/hr IV ASDIR [facility] Last Admin: 03/18/19 08:58 Dose: 125 mls/hr Insulin Aspart (Novolog Vial Sliding Scale -) 1 vial SQ [facility]; Protocol Last Admin: 03/18/19 12:00 Dose: 4 units Insulin Detemir (Levemir Vial) 20 units SQ HS [facility] Last Admin: 03/17/19 22:16 Dose: 20 units Labetalol HCl (Normodyne -) 100 mg PO BID [facility] Last Admin: 03/18/19 09:16 Dose: 100 mg Levetiracetam (Keppra Oral Solution -) 500 mg PO BID [facility] Last Admin: 03/18/19 09:16 Dose: 500 mg Pantoprazole Sodium (Protonix -) 40 mg PO DAILY [facility] ASSESSMENT/PLAN: Pt. is a 59 y.o. M w/ PMHx NIDDM, HTN, HLD presents with new onset seizure disorder. #New onset Complex Partial Seizure likely 2/2 TIA 2/2 uncontrolled Diabetes and uncontrolled Hypertension and Brain Mass Head CT Negative for acute pathology--> Rpt. Head CT unchanged from prior, both show L. cerebellar hypodensity with minimal mass effect? f/u MRI w/ contrast when Cr. improves EKG unremarkable, no ST-T segment changes, no TWI Non-compliant with medications LA: 3.7-->2.3 f/u MRI w/o contrast Carotid Duplex shows decrease in flow velocity from 80cm/s to 40cm/s suggestive of hemodynamic significant stenosis, f/u CTA once Cr. improves Echo(03/14/19): Trace TR, EF: 60-65% Increased Lipitor to 40mg Daily for HLD and intensification of statin post suspected CVA. Start ASA 81mg Given 1gm Keppra, c/w 500mg BID Neurology (Dr. Urias) and Neurosurgery (Dr. Soria) consults appreciated--> f/u [place] scan for primary location, brain mass is thought to be met. Strong family Hx. of Prostate Ca however brain metastases is less likely from prostate. Started Decadron 4mg Q6H Hematology/ Oncology consult appreciated started Protonix 40mg Daily Speech and Swallow Consult appreciated #KIM 2/2 uncontrolled DM and HTN- resolving Likely has a baseline CKD given PMHx. and non-compliance Cr elevated to 2.1 now decreased (last known was 1.5 in 2014)--> Cr. 1.3 Renal US negative for acute pathology c/w IVF Hold Lisinopril until Cr. improves. #IDDM Pt. presented with hx. of NIDDM and Glucose 500s w/o AG A1c is 10.6 now confirmed IDDM. Non-compliant with medications at home, will c/w daily counseling to adhere to medications Increase Levemir to 20 units HS ISS ACHS BGM ACHS Dietary consult appreciated #HTN-uncontrolled 24 hr period of permissive HTN completed Hold Norvasc to 10mg ? Will consider restarting in AM as Pt.s BP is appropriate at this time. Hold Lisinopril Avoid nephrotoxic agents at this time will start Labetalol 100mg BID #FEN No IVF, encourage PO intake, will consider bolusing IVF before CT w/ contrast monitor electrolytes and replete as needed NPO #DVT Ppx. Heparin SQTID Visit type - Emergency Visit Emergency Visit: Yes ED Registration Date: 03/14/19 Care time: The patient presented to the Emergency Department on the above date and was hospitalized for further evaluation of their emergent condition. - New Patient This patient is new to me today: No - Critical Care Critical Care patient: No - Discharge Referral [facility]erred to [facility] Med P.C.: No
--- NOTE | 2019-03-18 14:59 | PN ---
Progress Note (short form) - Note Progress Note: Patient stable. Voice improved no seizures Metastatic survey pending Decadron with GI prophylaxis started
[2019-03-18] MEDS: PANTOPRAZOLE 40 MG TABLET (FP) PO SCH (15:17)
--- NOTE | 2019-03-18 19:48 | PN ---
Teaching Attending Note Name of Resident: Jesus Shaw ATTENDING PHYSICIAN STATEMENT I saw and evaluated the patient. I reviewed the resident's note and discussed the case with the resident. I agree with the resident's findings and plan as documented. SUBJECTIVE: Feels well - no headache/visual disturbance/dizziness/nausea/ vomiting. OBJECTIVE: Afebrile, Hemodynamically Stable. Last Vital Signs Temp Pulse Resp BP Pulse Ox 98.1 F 84 18 137/89 98 03/18/19 14:26 03/18/19 14:26 03/18/19 14:26 03/18/19 14:26 03/18/19 09:00 HEENT - Atraumatic, Normocephalic. Heart - S1, S2, RRR Lungs - clear to auscultation Abdomen - Soft, non-tender. Bowel Sounds normal. Extremities - no edma, no calf tenderness Neuro - AAO x3. EOMI. SONNY. Tone/Power normal all 4 extremities. Laboratory Results - last 24 hr 03/17/19 03/18/19 03/18/19 21:03 05:36 09:35 Sodium 140 Potassium 3.9 Chloride 110 H Carbon Dioxide 25 Anion Gap 5 L BUN 15 Creatinine 1.3 Creat Clearance w eGFR 56.50 POC Glucometer 233 179 Random Glucose 221 H Calcium 8.3 L 03/18/19 03/18/19 11:33 16:53 Sodium Potassium Chloride Carbon Dioxide Anion Gap BUN Creatinine Creat Clearance w eGFR POC Glucometer 207 222 Random Glucose Calcium Current Medications Generic Name Dose Route Start Last Admin Trade Name Freq PRN Reason Stop Dose Admin Acetylcysteine 600 mg 03/15/19 22:00 03/18/19 09:20 Mucomyst 20 Oral / Inh Use Only* PO 600 mg BID MAIX Administration Aspirin 81 mg 03/14/19 10:00 03/18/19 09:16 Asa - PO 81 mg DAILY MAXI Administration Atorvastatin Calcium 40 mg 03/14/19 22:00 03/17/19 22:15 Lipitor - PO 40 mg HS MAXI Administration Benzocaine/Menthol 1 each 03/15/19 12:37 03/15/19 13:01 Cepacol Lozenge - MM 1 each PRN PRN Administration SORE THROAT Dexamethasone Sodium Phosphate 4 mg 03/18/19 15:00 03/18/19 14:00 Decadron Injection - IVPUSH 4 mg Q6H-IV MAXI Administration Heparin Sodium (Porcine) 5,000 unit 03/14/19 06:00 03/18/19 13:28 Heparin - SQ 5,000 unit TID MAXI Administration Sodium Chloride 1,000 mls @ 125 mls/hr 03/16/19 16:19 03/18/19 17:15 Normal Saline - IV Not Given ASDIR MAXI Insulin Aspart 1 vial 03/14/19 07:00 03/18/19 17:16 Novolog Vial Sliding Scale - SQ 4 units ACHS MAXI Administration Protocol Insulin Detemir 20 units 03/16/19 14:23 03/17/19 22:16 Levemir Vial SQ 20 units HS MAXI Administration Labetalol HCl 100 mg 03/15/19 10:00 03/18/19 09:16 Normodyne - PO 100 mg BID MAXI Administration Levetiracetam 500 mg 03/15/19 12:30 03/18/19 09:16 Keppra Oral Solution - PO 500 mg BID MAXI Administration Pantoprazole Sodium 40 mg 03/18/19 14:15 03/18/19 15:17 Protonix - PO 40 mg DAILY MAXI Administration Home Medications Medication Instructions Recorded Amlodipine Besylate [Norvasc -] 5 mg PO DAILY 03/14/19 Aspirin [ASA -] 81 mg PO DAILY 03/14/19 Atorvastatin Ca [Lipitor] 20 mg PO HS 03/14/19 Glipizide 10 mg PO DAILY 03/14/19 Lisinopril 5 mg PO DAILY 03/14/19 Metformin HCl [Glucophage] 1,000 mg PO BID 03/14/19 ASSESSMENT AND PLAN: 59 year old male with history of DM2, HTN, HLD presented with seizure activity secondary to newly discovered Cerebellar mass 1. Complex Partial Seizure, new onset, secondary to newly discovered Cerebellar Mass unknown Primary - Awaiting CT C/A/P result. CEA/AFP pending. Head CT Negative, MRI showed solid lesion with vasogenic edema. Carotid Duplex shows decrease in flow velocity from 80cm/s to 40cm/s suggestive of hemodynamic significant stenosis Echo - normal EF, Trace TR Continue Aspirin, Statin, Keppra. Started on Decadron with PPI prophylaxis and Keppra. Neurology and Neurosurgery following. 2. Hoarseness CT Chest/Neck and US Thyroid requested. 3. KIM - resolving with OV hydration Renal US negative for acute pathology/obstruction 4. DM 2 - uncontrolled . A1C 10.6 Continue Levemir 20 HS/Novolog sliding scale. Glipizide/Metformin held. 5. HTN - Norvasc increased to 10mg. Continue Labetalol. MILE-I held due to KIM. DVT Px- Heparin SQ
[2019-03-18] MEDS: ATORVASTATIN CA 40 MG TABLET (FP) PO SCH (21:30)
[2019-03-18] MEDS: INSULIN (LEVEMIR) 100 UNITS/ML UNITS SQ SCH (21:33)
--- NOTE | 2019-03-18 23:01 | PN ---
Progress Note (short form) - Note Progress Note: patient seenand examined feels well Last Vital Signs Temp Pulse Resp BP Pulse Ox 97.9 F 85 18 144/92 99 03/18/19 22:00 03/18/19 22:00 03/18/19 22:00 03/18/19 22:00 03/18/19 21:00 Cor: RSR, No murmurs, No gallops Lungs: Clear to P&A Abd: Soft, Normal bowel sounds, Ext:No significant edema Labs/meds reviewed a/p 59 y/o patient with left cerebellar lesion/edema, presented with seizure discussed with neurosurgery --awaiting ct scans c/a/p. will hold off steroids. continue keepr will cosnult rad-onc
[2019-03-18 23:08] LABS: CARCINOEMBRYONIC ANTIGEN 5.3 ng/mL (0.0-4.7)
[2019-03-19 06:20] LABS: ANION GAP 8 MMOL/L (8-16); BLOOD UREA NITROGEN 22 mg/dL (7-18); CALCIUM 8.5 mg/dL (8.5-10.1); CHLORIDE 107 mmol/L (98-107); CO2 23 mmol/L (21-32); CREATININE 1.4 mg/dL (0.55-1.3); MAGNESIUM 2.3 mg/dL (1.8-2.4); POTASSIUM 4.8 mmol/L (3.5-5.1); SODIUM 138 mmol/L (136-145)
[2019-03-19] MEDS: HEPARIN NA (PORCINE) 5,000 UNITS/ML 1ML VIAL SQ SCH (06:40)
[2019-03-19] MEDS: INSULIN SLIDING SCALE (NOVOLOG) 1 VIAL SQ SCH ×2 (06:40→11:55)
[2019-03-19 07:22] LABS: GLUCOSE,RANDOM 303 mg/dL (74-106)
[2019-03-19] MEDS ORDERED: INSULIN (LEVEMIR) 100 UNITS/ML UNITS SQ SCH (07:26)
[2019-03-19] MEDS ORDERED: PT OWN MED DRAWER 7, Y5N ONE (09:12)
[2019-03-19] MEDS: levETIRAcetam 500 MG/5 ML ORAL SOLUTION (UNIT-DOSE CUPS) PO SCH (09:18)
[2019-03-19] MEDS: ASPIRIN 81 MG CHEWABLE TABLETS PO SCH (09:19)
[2019-03-19] MEDS: LABETALOL HCL 100 MG TABLET (FP) PO SCH (09:19)
[2019-03-19] MEDS: PANTOPRAZOLE 40 MG TABLET (FP) PO SCH (09:19)
[2019-03-19 09:22] VITALS: TEMP 97.6
[2019-03-19] MEDS ORDERED: amLODIPine BESYLATE 10 MG TABLET (FP) PO SCH (10:00)
--- NOTE | 2019-03-19 10:46 | PN ---
Progress Note, [employer] - Note Progress Note: ct chest/soft tissue neck noted. Initially upon assessment again today, voice was completely aphonic. I had him rotate all the way to the left with remarkable improved phonation now sustained with head rotation to right and forward. Etiology of improved sudden voicing unclear however voice now audible. If voice is intermittent or aphonic again, consider ENT consult to visualize vocal cords-r/o vocal cord structure/dysfunction.
--- NOTE | 2019-03-19 11:31 | PN ---
Teaching Attending Note Name of Resident: Jesus Shaw ATTENDING PHYSICIAN STATEMENT I saw and evaluated the patient. I reviewed the resident's note and discussed the case with the resident. I agree with the resident's findings and plan as documented. SUBJECTIVE: Feels well - no headache/visual disturbance/dizziness/nausea/ vomiting. No limb numbness/weakness/tingling OBJECTIVE: Afebrile, Hemodynamically Stable. Last Vital Signs Temp Pulse Resp BP Pulse Ox 97.6 F 87 20 150/88 98 03/19/19 09:22 03/19/19 09:22 03/19/19 09:22 03/19/19 09:22 03/19/19 09:23 HEENT - Atraumatic, Normocephalic. Hoarse voice. Heart - S1, S2, RRR Lungs - clear to auscultation Abdomen - Soft, non-tender. Bowel Sounds normal. Extremities - no edema, no calf tenderness Neuro - AAO x3. EOMI. SONNY. Tone/Power normal all 4 extremities. Laboratory Results - last 24 hr 03/17/19 03/18/19 03/18/19 05:50 11:33 16:53 Sodium Potassium Chloride Carbon Dioxide Anion Gap BUN Creatinine Creat Clearance w eGFR POC Glucometer 207 222 Random Glucose Calcium Magnesium Tumor Marker AFP 4.7 Carcinoembryonic Ag 5.3 H 03/18/19 03/19/19 03/19/19 21:23 05:30 05:57 Sodium 138 Potassium 4.8 Chloride 107 Carbon Dioxide 23 Anion Gap 8 BUN 22 H Creatinine 1.4 H Creat Clearance w eGFR 51.87 POC Glucometer 271 277 Random Glucose 303 H* Calcium 8.5 Magnesium 2.3 Tumor Marker AFP Carcinoembryonic Ag Current Medications Generic Name Dose Route Start Last Admin Trade Name Freq PRN Reason Stop Dose Admin Amlodipine Besylate 10 mg 03/19/19 10:00 03/19/19 09:19 Norvasc - PO 10 mg DAILY MAXI Administration Aspirin 81 mg 03/14/19 10:00 03/19/19 09:19 Asa - PO 81 mg DAILY MAXI Administration Atorvastatin Calcium 40 mg 03/14/19 22:00 03/18/19 21:30 Lipitor - PO 40 mg HS MAXI Administration Benzocaine/Menthol 1 each 03/15/19 12:37 03/15/19 13:01 Cepacol Lozenge - MM 1 each PRN PRN Administration SORE THROAT Heparin Sodium (Porcine) 5,000 unit 03/14/19 06:00 03/19/19 06:40 Heparin - SQ 5,000 unit TID MAXI Administration Sodium Chloride 1,000 mls @ 125 mls/hr 03/16/19 16:19 03/18/19 17:15 Normal Saline - IV Not Given [facility] Insulin Aspart 1 vial 03/14/19 07:00 03/19/19 06:40 Novolog Vial Sliding Scale - SQ 6 units ACHS MAXI Administration Protocol Insulin Detemir 25 units 03/19/19 07:26 Levemir Vial SQ HS MAXI Labetalol HCl 100 mg 03/15/19 10:00 03/19/19 09:19 Normodyne - PO 100 mg BID MAXI Administration Levetiracetam 500 mg 03/15/19 12:30 03/19/19 09:18 Keppra Oral Solution - PO 500 mg BID MAXI Administration Pantoprazole Sodium 40 mg 03/18/19 14:15 03/19/19 09:19 Protonix - PO 40 mg DAILY MAXI Administration ASSESSMENT AND PLAN: 59 year old male with history of DM2, HTN, HLD presented with seizure activity secondary to newly discovered Cerebellar mass 1. Complex Partial Seizure, new onset, secondary to newly discovered Cerebellar Mass Unknown Primary - CT C/A/P negative for primary lesion CEA/AFP 5.3/4.[address] Negative, MRI showed solid lesion with vasogenic edema. Carotid Duplex shows R sided decrease in flow velocity from 80cm/s to 40cm/s, unclear whether hemodynamically significant - further investigation/ intervention as per Vascular Surgery - will refer as out-patient. Echo - normal EF, Trace TR Continue Aspirin, Statin, Keppra. Issue of steroid for vasogenic edema - will follow recommendations of Neurosurgery re: need for steroid Radiation oncology consulted for eval for possible RTx. Oncology, Radiation Oncology, Neurology and Neurosurgery to follow as out- patient. 2. Hoarseness CT Chest/Neck negative 3. KIM - resolved with IV hydration Renal US negative for acute pathology/obstruction 4. DM 2 - uncontrolled . A1C 10.6 Continue Levemir 20 HS/Novolog sliding scale. Glipizide/Metformin to resume on discharge. 5. HTN - Norvasc increased to 10mg. Will continue Labetalol and MILE-I on discharge. 6. Renal Cysts/Bladder stone - asymptomatic. For out-patient Urology eval. Medically and Neurologically Stable for discharge with Neurology, Neurosurgery, Hematology/Oncology, Radiation/Oncology, Vascular Surgery, Urology follow ups.
--- NOTE | 2019-03-19 12:26 | PN ---
Progress Note (short form) - Note Progress Note: Patient is medically stable and ready for discharge from Neurosurgery standpoint. No immediate need for steroids. Would continue Keppra. Metastatic search for potential primary lesion continues. The differential diagnosis for the brain lesion may also include infections such as cystercercosis (patient travelled to [place] 3 years ago and had meat of questionable provenance earlier this year). Infectious Diseases evaluation may be prudent, and can be done as outpatient.
[2019-03-19 12:39] VITALS: BP 151/85; PULSE 85
--- NOTE | 2019-03-19 12:41 | DS ---
Physical Exam: SUBJECTIVE: Patient seen and examined. Pt. denies any acute complaints. OBJECTIVE: Vital Signs Period Temp Pulse Resp BP Sys/Vargas Pulse Ox Last 24 Hr 97.6 F-98.1 F 84-87 18-20 137-161/88-101 98-99 PHYSICAL EXAM GENERAL: The patient is awake, alert, and fully oriented, in no acute distress. HEAD: Normal with no signs of trauma. EYES: PERRL, extraocular movements intact, sclera anicteric, conjunctiva clear. ENT: Ears normal, nares patent, oropharynx clear without exudates, moist mucous membranes. NECK: Trachea midline, full range of motion, supple. LUNGS: Breath sounds equal, clear to auscultation bilaterally, no wheezes, no crackles, no accessory muscle use. HEART: Regular rate and rhythm, S1, S2 without murmur, rub or gallop. ABDOMEN: Soft, nontender, nondistended, normoactive bowel sounds EXTREMITIES: 2+ pulses, warm, well-perfused, no edema. NEUROLOGICAL: Cranial nerves II through XII grossly intact. Normal speech, gait not observed. PSYCH: Normal mood, normal affect. SKIN: Warm, dry, normal turgor, no rashes or lesions noted. LABS Laboratory Results - last 24 hr 03/17/19 03/18/19 03/18/19 05:50 16:53 21:23 Sodium Potassium Chloride Carbon Dioxide Anion Gap BUN Creatinine Creat Clearance w eGFR POC Glucometer 222 271 Random Glucose Calcium Magnesium Tumor Marker AFP 4.7 Carcinoembryonic Ag 5.3 H 03/19/19 03/19/19 03/19/19 05:30 05:57 11:53 Sodium 138 Potassium 4.8 Chloride 107 Carbon Dioxide 23 Anion Gap 8 BUN 22 H Creatinine 1.4 H Creat Clearance w eGFR 51.87 POC Glucometer 277 319 Random Glucose 303 H* Calcium 8.5 Magnesium 2.3 Tumor Marker AFP Carcinoembryonic Ag HOSPITAL COURSE: Date of Admission:03/14/19 Date of Discharge: 03/19/19 Pt. is a 59 y.o. M w/ PMHx. 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 Pt. did not have any repeat episodes after "leg twitching in ER." Pt. found on admission to be hyperglycemic to 500s and hypertensive. A1c was 10.6 on admission. Pt. was macdonald- scanned without location of primary. Carotid Duplex was suggestive of R. carotid bifurcation stenosis. Pt. found to have non-obstructing 11 cm bladder stone on right. Consults to Neurology, Neurosurgery, Hematology/Oncology, and Radiation/Oncology appreciated. Medications and outpatient follow-ups were recommended as detailed below. Decision was made that it was safe to discharge Pt. without steroids as he was medically stable through out stay without signs of ataxia, or increased intracranial pressure. Hospital course discussed and agreed upon with Pt., fiance, PCP-Ambika Daniel, and medical staff. Minutes to complete discharge: 35 Discharge Summary Reason For Visit: NEW ONSET SEIZURE Current Active Problems Cerebellar mass (Acute) New onset seizure (Acute) HTN (hypertension) (Chronic) Hyperlipidemia (Chronic) Condition: Stable - Instructions Diet, Activity, Other Instructions: You were hospitalized here due to your seizure. When you were here unfortunately brain imaging showed a mass which most likely caused your seizure. You were evaluated by a neurologist and neurosurgeon who did not recommend surgical intervention at this point. Oncologists were called and they recommended further body scans which did not show obvious cancer elsewhere. They recommended to continue following up because you may be able to have radiation to treat the mass. Medications: You were started on Keppra 500mg TWICE DAILY (anti-seizure medication) and will need to continue this During your stay you were started on insulin because your diabetic number was high (10.6) 1)You will need to remain on insulin for now 2)Please continue Levemir 25 units EVERY NIGHT 3)You will need to check your morning sugar levels and with each meal and keep a journal of the numbers for your primary care physician. A device has been sent to your pharmacy 4) If your pre-meal sugar is elevated you will need to administer Novolog depending on the scale below: Sugar Level Units Given 100-150 0 151-200 2 201-250 4 251-300 6 301-350 8 351-400 10 >400 Please go to the ER 5) The nursing staff will teach you how to administer the insulin and take your blood sugar We INCREASED your Norvasc to 10mg DAILY. Please continue this dose Please take Labetalol 100mg TWICE DAILY (blood pressure medication) Please take Lisinopril 5mg DAILY (blood pressure medication) Please take Aspirin 81mg (baby aspirin) DAILY Follow-ups: Please follow-up with Dr. York for your brain mass (oncologist) who may recommend seeing Dr. Flannery (Radiation specialist) Please follow-up with Dr. Soria (neurosurgeon) for your brain mass after Dr. York's visit Please follow-up with Dr. Mahajan (vascular surgeon) because your neck arteries were seen to be narrowed on imaging and he may recommend further treatment. Please follow-up with Dr. Johnson (ENT) for your hoarseness Please follow-up with Dr. Pily Armstrong (urology) for a your bladder stone ( 11cm). Referrals: Sivakumar Soria MD, FAANS [Staff Physician] - Demetri Flannery MD [Staff Physician] - Benson Mahajan DO [Staff Physician] - Patrick Yokr MD [Staff Physician] - Jcarlos Johnson MD [Staff Physician] - Disposition: HOME - Home Medications Comprehensive Discharge Medication List: Ambulatory Orders Aspirin [ASA -] 81 mg PO DAILY 03/14/19 Lisinopril 5 mg PO DAILY 03/14/19 Alcohol Antiseptic Pads [Alcohol Prep Pads] 1 each TP ACHS #100 med..pad Amlodipine Besylate [Norvasc -] 10 mg PO DAILY #30 tablet 03/19/19 Atorvastatin Ca [Lipitor] 40 mg PO HS #30 tablet 03/19/19 Insulin (Levemir) [Levemir Vial] 25 units SQ HS #1 vial 03/19/19 Insulin Sliding Scale [Novolog Vial Sliding Scale -] See Protocol SQ ACHS #1 pen 03/19/19 Labetalol HCl [Normodyne -] 100 mg PO BID #60 tablet 03/19/19 Lancets 1 each MC ACHS #100 each 03/19/19 Miscellaneous Medical Supply [Glucometer Device] 1 each SHAWN ASDIR #1 kit Miscellaneous Medical Supply [Glucometer Test Strips #100] 1 each SHAWN ASDIR #1 box 03/19/19 Pen Needle, Diabetic [[place]] 1 each MC ACHS #100 dis.needle 03/19/19 levETIRAcetam [Keppra Oral Solution -] 500 mg PO BID #60 cup 03/19/19 This patient is new to me today: No Emergency Visit: Yes ED Registration Date: 03/14/19 Care time: The patient presented to the Emergency Department on the above date and was hospitalized for further evaluation of their emergent condition. Critical Care patient: No - Discharge Referral Referred to [facility] Med P.C.: No
== END 2019-03-19 16:43 | disposition home or self-care (01) | DRG 58 ==
LOC: JER 00:57 → JERBED 02:51 → OBSVTOIN 03:47 → J4S 21:36
PROVIDERS: ADMIT Internal Medicine
DX: D49.6 Neoplasm of unspecified behavior of brain (principal); N17.9 Acute kidney failure, unspecified; G40.409 Other generalized epilepsy and epileptic syndromes, not intractable, without status epilepticus; E11.22 Type 2 diabetes mellitus with diabetic chronic kidney disease; E11.40 Type 2 diabetes mellitus with diabetic neuropathy, unspecified; E87.2 Acidosis; E11.65 Type 2 diabetes mellitus with hyperglycemia; E87.1 Hypo-osmolality and hyponatremia; Z79.84 Long term (current) use of oral hypoglycemic drugs; E78.5 Hyperlipidemia, unspecified; E66.9 Obesity, unspecified; I12.9 Hypertensive chronic kidney disease with stage 1 through stage 4 chronic kidney disease, or unspecified chronic kidney disease; N18.9 Chronic kidney disease, unspecified; Z91.14 Patient's other noncompliance with medication regimen; R49.0 Dysphonia; Z86.73 Personal history of transient ischemic attack (TIA), and cerebral infarction without residual deficits; Z80.42 Family history of malignant neoplasm of prostate; Z80.0 Family history of malignant neoplasm of digestive organs; R49.1 Aphonia; R22.0 Localized swelling, mass and lump, head
CPT/HCPCS: 36415; 70450-TC; 70491-TC; 70551-TC; 70552-TC; 71045-TC-FY; 71260-TC; 74177-TC; 76775-TC; 80048; 80053; 80061; 80307; 82105; 82378; 82550; 82553; 82565; 82962; 83036; 83605; 83721; 83735; 84100; 84146; 84153; 84300; 84484; 85025; 85027; 86140; 86593; 87070; 87880; 93005; 93010; 93306-TC; 93880-TC; 97116-GP; 97161-GP; 99284-25; G0378; J1100; J1644; J7030; Q9967